=== PATIENT | male | born 1960 | race Caucasian/White ===

== ENCOUNTER 2017-07-22 12:59 | Emergency (ER) | payer OTHER ==
[2017-07-22] MEDS ORDERED: NA CHLORIDE 0.9% 1,000 ML ONE (14:39)
--- NOTE | 2017-07-22 14:42 | EKG ---
Test Date: 2017-07-22 Test Time: 14:24:20 Wellness Manager: BROOKLYNN MEASUREMENT RESULTS: Intervals: Rate: 57 UT: 174 QRSD: 82 QT: 462 QTc: 449 [place]: P: 77 UT: 174 QRS: 88 T: 75 INTERPRETIVE STATEMENTS: Sinus bradycardia Otherwise normal ECG No previous ECG available for comparison Electronically Signed On 07-22-17 14:41:56 CDT by Gustavo Raya
--- NOTE | 2017-07-22 14:59 | RAD REPORT ---
EXAM DESCRIPTION: CT - Head C Spine Mpr Wo Con - 07/22/2017 2:40 pm CLINICAL HISTORY: Head and neck injury status post fall. Head and neck pain COMPARISON: None. TECHNIQUE: Computed axial tomography of the head and cervical spine was obtained. Sagittal and coronal reconstruction was performed. All CT scans are performed using dose optimization technique as appropriate and may include automated exposure control or mA/KV adjustment according to patient size. FINDINGS: An intracranial bleed is not seen. The ventricles are normal in caliber. An extra-axial fl uid collection is not noted. Opacification of the visualized left maxillary sinus is noted. The masto ids are clear A cervical fracture is not visualized. No dislocation is noted. IMPRESSION: No acute intracranial abnormality is seen. A cervical fracture is not visualized. If the patient continues to have symptoms to suggest intracra nial /spinal cord pathology then MRI would be recommended
[2017-07-22 15:16] LABS: Absolute Lymphocytes (CBC) 1.5 K/uL (0.7-4.9); Absolute Monocytes 0.4 K/uL (0.1-1.3); Absolute Neutrophil 2.9 K/uL (1.8-8.0); Basophils % 0.8 % (0-1.3); Eosinophils % 2.9 % (0-4.4); Hematocrit 38.8 % (39.6-49.0); Lymphocytes % 30.7 % (15.3-44.8); MCH 30.5 pg (27.0-35.0); MCV 89.6 fL (80-100); MPV 9.1 fL (7.6-11.3); Monocytes % 7.1 % (3.3-12.3); RBC Red Blood Cell Count 4.34 M/uL (4.33-5.43)
[2017-07-22 15:21] LABS: Protime INR 0.98
[2017-07-22 15:33] LABS: Urine Blood NEGATIVE (NEG); Urine Glucose NEGATIVE (NEG); Urine Protein NEGATIVE (NEG); Urine Specific Gravity 1.015 (1.005-1.030); Urine pH 7.5 (5.0-7.0)
[2017-07-22 15:56] LABS: Potassium 3.4 mEq/L (3.6-5.0)
[2017-07-22 16:02] LABS: Albumin 3.9 g/dL (3.2-5.5); Bilirubin Direct 0.2 mg/dL (0-0.2); Bilirubin Total 0.8 mg/dL (0.3-1.2); Magnesium 1.7 mg/dL (1.8-2.5); Protein, Total 6.3 g/dL (6.0-8.3)
[2017-07-22 16:08] LABS: Arterial Blood Carboxyhemoglob 0.9 % (0-1.5); Blood Gas Oxyhemoglobin 95.4 % (94-97); Blood O2 Saturation 97.2 % (92-98.5)
[2017-07-22] MEDS ORDERED: MAGNESIUM SULFATE 1 gm IVPB 1 GM/100 ML BAG IV ONE (16:11)
[2017-07-22] MEDS ORDERED: POTASSIUM CL SA 10 MEQ TAB PO ONE (16:11)
--- NOTE | 2017-07-22 16:36 | RAD REPORT ---
EXAM DESCRIPTION: CT - Chest For Pe Angio - 07/22/2017 4:20 pm CLINICAL HISTORY: Chest pain. COMPARISON: None. TECHNIQUE: CT angiogram of the pulmonary arteries was performed with MIP. All CT scans are performed using dose optimization technique as appropriate and may include automated exposure control or mA/KV adjustment according to patient size. FINDINGS: No evidence of pulmonary thromboembolism. No acute aortic finding demonstrated. The lungs are mildly emphysematous but clear. No significant pericardial or pleural fluid. No concerning bony finding. IMPRESSION: No evidence of pulmonary thromboembolism. Mild COPD.
--- NOTE | 2017-07-22 16:51 | ER ---
Nurse's Notes [facility] Name: Issac Cox Age: 57 yrs Sex: Male : 1960 Arrival Date: 07/22/2017 Time: 13:13 Bed 16 Private MD: Diagnosis: Dyspnea;Weakness;Hypokalemia;Hypomagnesemia Presentation: 07/22 13:14 Presenting complaint: EMS states: Was working in trailer, became SOB suddenly and then ph woke up face first on floor, continues to c/o SOB, VSS en route w/ Spo2 100% on RA, however mucus membranes appear very dry, IV established and approx 800 mL NS administered. Transition of care: patient was not received from another setting of care. Onset of symptoms was July 22, 2017. Initial Sepsis Screen: Does the patient meet any 2 criteria? No. Patient's initial sepsis screen is negative. Does the patient have a suspected source of infection? No. Patient's initial sepsis screen is negative. Care prior to arrival: None. 13:14 Method Of Arrival: EMS: [facility] ph 13:14 Acuity: ANG 3 ph Historical: - Allergies: 13:18 No Known Allergies; ph - Home Meds: 13:18 None [Active]; ph - PMHx: 13:18 None; ph - Immunization history:: Adult Immunizations unknown. - Family history:: not pertinent. - Social history:: Smoking status: Patient/guardian denies using tobacco. Screenin:26 Abuse screen: Denies threats or abuse. Denies injuries from another. Nutritional ph screening: No deficits noted. Tuberculosis screening: No symptoms or risk factors identified. Fall Risk Fall in past 12 months (25 points). No secondary diagnosis (0 pts). IV access (20 points). Ambulatory Aid- None/Bed Rest/Nurse Assist (0 pts). Gait- Weak (10 pts.). Mental Status- Oriented to own ability (0 pts). Total Lujan Fall Scale indicates High Risk Score (45 or more points). Fall prevention measures have been instituted. Side Rails Up X 2 Placed Close to Nursing Station Family Present and informed to notify staff if the need to leave the bedside As available patient and family educated on Fall Prevention Program and Strategies. Assessment: 13:30 General: Appears in no apparent distress. uncomfortable, slender, Behavior is ph cooperative, anxious, Denies fever, feeling ill. Pain: Complains of pain in right leg and left leg Quality of pain is described as crampy. Neuro: Level of Consciousness is awake, alert, obeys commands, Oriented to person, place, time, situation, tremor noted to R arm, pt denies hx. Reports dizziness, photophobia a syncopal episode. Cardiovascular: Reports lightheadedness, shortness of breath, syncope, Denies chest pain, nausea, vomiting, Capillary refill < 3 seconds in bilateral fingers Patient's skin is warm and dry. Rhythm is regular. Respiratory: Reports shortness of breath at rest Airway is patent Respiratory effort is even, unlabored, Respiratory pattern is tachypnea Breath sounds are clear bilaterally. GI: Reports nausea, vomiting, 1 episode this morning, denies nausea at this time. Derm: Skin is intact, Skin is pink, warm \T\ dry. Musculoskeletal: Circulation, motion, and sensation intact. Range of motion: intact in all extremities. 14:30 Reassessment: Patient appears in no apparent distress at this time. Patient and/or ph family updated on plan of care and expected duration. Pain level reassessed. Patient is alert, oriented x 3, equal unlabored respirations, skin warm/dry/pink. 15:30 Reassessment: Patient appears in no apparent distress at this time. Patient and/or ph family updated on plan of care and expected duration. Pain level reassessed. Patient is alert, oriented x 3, equal unlabored respirations, skin warm/dry/pink. Pt resting quietly, reports that SOB and leg cramps have improved, awaiting CT scan, family at bedside, VSS. 16:30 Reassessment: Patient appears in no apparent distress at this time. Patient and/or ph family updated on plan of care and expected duration. Pain level reassessed. Patient is alert, oriented x 3, equal unlabored respirations, skin warm/dry/pink. Patient states feeling better. Patient states symptoms have improved. 17:33 Reassessment: Patient appears in no apparent distress at this time. Patient and/or ph family updated on plan of care and expected duration. Pain level reassessed. Patient is alert, oriented x 3, equal unlabored respirations, skin warm/dry/pink. Pt resting quietly, awaiting results of repeat cardiac prior to discharge. 18:55 Reassessment: Patient appears in no apparent distress at this time. Patient and/or ph family updated on plan of care and expected duration. Pain level reassessed. Patient is alert, oriented x 3, equal unlabored respirations, skin warm/dry/pink. Pt discharged home. Vital Signs: 13:13 Temp 97.8; tw2 13:17 BP 105 / 68; Pulse 84; Resp 20; Temp 97.8; Pulse Ox 100% on R/A; Weight 74.84 kg; ph Height 5 ft. 10 in. (177.80 cm); 14:30 BP 103 / 68; Pulse 64; Resp 18; Pulse Ox 99% on R/A; ph 15:28 Pulse 63; Resp 18; Pulse Ox 100% on R/A; Pain 0/10; ph 16:30 BP 118 / 68; Pulse 67; Resp 18; Pulse Ox 100% on R/A; ph 17:37 BP 116 / 76; Pulse 76; Resp 18; Temp 97.4; Pulse Ox 100% on R/A; ph 18:30 BP 115 / 78; Pulse 71; Resp 18; Temp 97.8; Pulse Ox 100% on R/A; ph 13:17 Body Mass Index 23.67 (74.84 kg, 177.80 cm) ph ED Course: 13:13 Patient arrived in ED. tw2 13:13 Estrella Olson, RN is Primary Nurse. ph 13:17 Triage completed. ph 13:19 Arm band placed on. ph 14:11 Kelvin Ricketts MD is Attending Physician. hamida 14:22 X-ray completed. Portable x-ray completed in exam room. Patient tolerated procedure jb2 well. 14:30 XRAY Chest (1 view) In Process Unspecified. EDMS 14:39 CT completed. Patient tolerated procedure well. Patient moved to CT via stretcher. nj Patient moved back from CT. 14:40 CT Head C Spine In Process Unspecified. EDMS 15:00 Maintain EMS IV. Dressing intact. Good blood return noted. Site clean \T\ dry. Gauge \T\ ph site: 20 LAC. 15:27 Patient has correct armband on for positive identification. Bed in low position. Call ph light in reach. Side rails up X 1. Pulse ox on. NIBP on. concert singer on. Warm blanket given. 16:[address] nj 16:20 CT completed. Patient tolerated procedure well. Patient moved back from CT. nj 16:20 CT Chest For PE Angio In Process Unspecified. EDMS 17:37 No provider procedures requiring assistance completed. ph 18:55 IV discontinued, intact, bleeding controlled, No redness/swelling at site. Pressure ph dressing applied. Administered Medications: 15:00 Drug: NS 0.9% 1000 ml Route: IV; Rate: 1 bolus; Site: left antecubital; ph 16:00 Follow up: Response: No adverse reaction; IV Status: Completed infusion ph 17:00 Drug: Potassium Chloride 20 mEq Route: PO; ph 18:00 Follow up: Response: No adverse reaction ph 17:15 Drug: Magnesium Sulfate 1 grams Route: IVPB; Infused Over: 1 hrs; Site: left ph antecubital; 18:30 Follow up: Response: No adverse reaction; IV Status: Completed infusion ph Outcome: 16:50 Discharge ordered by . hamida 19:18 Patient left the ED. ph 19:18 Discharged to home ambulatory, with significant other. ph 19:18 Condition: good 19:18 Discharge instructions given to patient, Instructed on discharge instructions, follow up and referral plans. Demonstrated understanding of instructions, follow-up care. Signatures: Dispatcher [employer] EDMS Kelvin Ricketts MD MD cha Buechter, Jesse jb2 Estrella Olson, RN RN Rut Lugo RN RN 2 Dudley Frazier Corrections: (The following items were deleted from the chart) 19:32 13:30 General: Appears in no apparent distress. uncomfortable, slender, Behavior is ph cooperative, agitated, Denies fever, feeling ill, ph
--- NOTE | 2017-07-22 16:51 | EDPHYS ---
Physician Documentation [facility] Name: Issac Cox Age: 57 yrs Sex: Male : 1960 Arrival Date: 07/22/2017 Time: 13:13 Bed 16 Private MD: ED Physician Kelvin Ricketts HPI: 07/22 14:21 This 57 yrs old Male presents to ER via EMS with complaints of sob ,weakness hamida and sob. 14:21 The patient has experienced near-syncope, almost passed out, felt dizzy. Onset: The hamida symptoms/episode began/occurred just prior to arrival. Duration: This was a single episode, that lasted 30 second(s). Context: the episode(s) was witnessed, by co-worker(s). Associated injury: Head/face:. Associated signs and symptoms: Pertinent positives: dizziness, shortness of breath. Current symptoms: Currently, the patient is not experiencing any symptoms. The patient has not experienced similar symptoms in the past. Historical: - Allergies: 13:18 No Known Allergies; ph - Home Meds: 13:18 None [Active]; ph - PMHx: 13:18 None; ph - Immunization history:: Adult Immunizations unknown. - Family history:: not pertinent. - Social history:: Smoking status: Patient/guardian denies using tobacco. ROS: 14:21 Constitutional: Negative for fever, chills, and weight loss, Eyes: Negative for injury, hamida pain, redness, and discharge, ENT: Negative for injury, pain, and discharge, Neck: Negative for injury, pain, and swelling, Cardiovascular: Negative for chest pain, palpitations, and edema, Abdomen/GI: Negative for abdominal pain, nausea, vomiting, diarrhea, and constipation, Back: Negative for injury and pain, : Negative for injury, bleeding, discharge, and swelling, MS/Extremity: Negative for injury and deformity, Skin: Negative for injury, rash, and discoloration, Psych: Negative for depression, anxiety, suicide ideation, homicidal ideation, and hallucinations, Allergy/Immunology: Negative for hives, rash, and allergies, Endocrine: Negative for neck swelling, polydipsia, polyuria, polyphagia, and marked weight changes, Hematologic/Lymphatic: Negative for swollen nodes, abnormal bleeding, and unusual bruising. 14:21 Cardiovascular: Negative for chest pain. 14:21 Respiratory: Positive for cough, shortness of breath. 14:21 Abdomen/GI: Negative for abdominal pain, nausea and vomiting. 14:21 MS/extremity: Negative for acute changes. Exam: 14:21 Constitutional: This is a well developed, well nourished patient who is awake, alert, hamida and in no acute distress. Head/Face: Normocephalic, atraumatic. Eyes: Pupils equal round and reactive to light, extra-ocular motions intact. Lids and lashes normal. Conjunctiva and sclera are non-icteric and not injected. Cornea within normal limits. Periorbital areas with no swelling, redness, or edema. ENT: Nares patent. No nasal discharge, no septal abnormalities noted. Tympanic membranes are normal and external auditory canals are clear. Oropharynx with no redness, swelling, or masses, exudates, or evidence of obstruction, uvula midline. Mucous membranes moist. Neck: Trachea midline, no thyromegaly or masses palpated, and no cervical lymphadenopathy. Supple, full range of motion without nuchal rigidity, or vertebral point tenderness. No Meningismus. Chest/axilla: Normal chest wall appearance and motion. Nontender with no deformity. No lesions are appreciated. Cardiovascular: Regular rate and rhythm with a normal S1 and S2. No gallops, murmurs, or rubs. Normal PMI, no JVD. No pulse deficits. Respiratory: Lungs have equal breath sounds bilaterally, clear to auscultation and percussion. No rales, rhonchi or wheezes noted. No increased work of breathing, no retractions or nasal flaring. Abdomen/GI: Soft, non-tender, with normal bowel sounds. No distension or tympany. No guarding or rebound. No evidence of tenderness throughout. Back: No spinal tenderness. No costovertebral tenderness. Full range of motion. Male : Normal genitalia with no discharge or lesions. Skin: Warm, dry with normal turgor. Normal color with no rashes, no lesions, and no evidence of cellulitis. MS/ Extremity: Pulses equal, no cyanosis. Neurovascular intact. Full, normal range of motion. Neuro: Awake and alert, GCS 15, oriented to person, place, time, and situation. Cranial nerves II-XII grossly intact. Motor strength 5/5 in all extremities. Sensory grossly intact. Cerebellar exam normal. Normal gait. Psych: Awake, alert, with orientation to person, place and time. Behavior, mood, and affect are within normal limits. 15:37 Musculoskeletal/extremity: DVT Exam: No signs of deep vein thrombosis. no pain, no hamida swelling, no tenderness, negative Homans' sign noted on exam, no appreciated bluish discoloration, no erythema, no increased warmth. Vital Signs: 13:13 Temp 97.8; tw2 13:17 BP 105 / 68; Pulse 84; Resp 20; Temp 97.8; Pulse Ox 100% on R/A; Weight 74.84 kg; ph Height 5 ft. 10 in. (177.80 cm); 14:30 BP 103 / 68; Pulse 64; Resp 18; Pulse Ox 99% on R/A; ph 15:28 Pulse 63; Resp 18; Pulse Ox 100% on R/A; Pain 0/10; ph 16:30 BP 118 / 68; Pulse 67; Resp 18; Pulse Ox 100% on R/A; ph 17:37 BP 116 / 76; Pulse 76; Resp 18; Temp 97.4; Pulse Ox 100% on R/A; ph 18:30 BP 115 / 78; Pulse 71; Resp 18; Temp 97.8; Pulse Ox 100% on R/A; ph 13:17 Body Mass Index 23.67 (74.84 kg, 177.80 cm) ph MDM: 14:11 Patient medically screened. [facility] 14:23 Data reviewed: vital signs, nurses notes, lab test result(s), EKG, radiologic studies, [facility] CT scan, plain films. 07/22 14:08 Order name: Basic Metabolic Panel; Complete Time: 16:06 07/22 14:08 Order name: BNP; Complete Time: 15:44 07/22 14:08 Order name: CBC with Diff; Complete Time: 15:22 07/22 14:08 Order name: Ckmb; Complete Time: 16:06 07/22 14:08 Order name: CPK; Complete Time: 16:06 07/22 14:08 Order name: LFT's; Complete Time: 16:06 07/22 14:08 Order name: Magnesium; Complete Time: 16:06 07/22 14:08 Order name: PT-INR; Complete Time: 15:22 07/22 14:08 Order name: Ptt, Activated; Complete Time: 15:22 ph 07/22 14:08 Order name: Troponin (emerg Dept Use Only); Complete Time: 15:37 ph 07/22 14:23 Order name: ABG; Complete Time: 16:33 [facility] 07/22 15:13 Order name: D-Dimer; Complete Time: 15:22 EDMS 07/22 15:28 Order name: Urine Dipstick--Ancillary (enter results); Complete Time: 15:37 07/22 14:08 Order name: XRAY Chest (1 view) 07/22 14:08 Order name: EKG; Complete Time: 14:09 ph 07/22 14:08 Order name: Cardiac monitoring; Complete Time: 14:33 ph 07/22 14:08 Order name: EKG - Nurse/Tech; Complete Time: 16:00 07/22 14:08 Order name: IV Saline Lock; Complete Time: 14:33 ph 07/22 14:08 Order name: Labs collected and sent; Complete Time: 16:00 07/22 14:08 Order name: O2 Per Protocol; Complete Time: 14:33 07/22 14:08 Order name: O2 Sat Monitoring; Complete Time: 14:33 ph 07/22 14:21 Order name: CT Head C Spine; Complete Time: 15:13 [facility] 07/22 15:47 Order name: CT Chest For PE Angio; Complete Time: 16:50 [facility] 07/22 16:09 Order name: Ckmb [facility] 07/22 16:09 Order name: Creatine Phosphokinase 07/22 16:09 Order name: Troponin (emerg Dept Use Only) [facility] 07/22 14:08 Order name: Urine Dipstick-Ancillary (obtain specimen); Complete Time: 14:33 07/22 14:21 Order name: Seizure Precautions; Complete Time: 14:33 [facility] 07/22 16:09 Order name: Repeat Cardiac Enzymes at: 400pm; Complete Time: 17:01 [facility] Administered Medications: 15:00 Drug: NS 0.9% 1000 ml Route: IV; Rate: 1 bolus; Site: left antecubital; ph 16:00 Follow up: Response: No adverse reaction; IV Status: Completed infusion ph 17:00 Drug: Potassium Chloride 20 mEq Route: PO; ph 18:00 Follow up: Response: No adverse reaction ph 17:15 Drug: Magnesium Sulfate 1 grams Route: IVPB; Infused Over: 1 hrs; Site: left ph antecubital; 18:30 Follow up: Response: No adverse reaction; IV Status: Completed infusion ph Disposition: 07/22/17 16:50 Discharged to Home. Impression: Dyspnea, Weakness, Hypokalemia, Hypomagnesemia. - Condition is Stable. - Discharge Instructions: Potassium Content of Foods, Hypomagnesemia, Near-Syncope, Shortness of Breath, Weakness, Shortness of Breath, [id number], Weakness, [id number], Aspirin and Your Heart, Hypokalemia. - Medication Reconciliation Form, Thank You Letter, Antibiotic Education, Prescription Opioid Use, Work release form form. - Follow up: Private Physician; When: 2 - 3 days; Reason: Recheck today's complaints, Continuance of care, Re-evaluation by your physician. - Problem is new. - Symptoms have improved. Signatures: Dispatcher [employer] [facility] Kelvin Ricketts MD MD cha Hall, Patricia RN RN ph Corrections: (The following items were deleted from the chart) 15:13 14:21 D-DIMER+[id number].BRZ ordered. [facility] EDCO 19:18 16:50 07/22/2017 16:50 Discharged to Home. Impression: Dyspnea; Weakness; Hypokalemia; ph Hypomagnesemia. Condition is Stable. Discharge Instructions: Near-Syncope, Shortness of Breath, Weakness, Shortness of Breath, [id number], Weakness, [id number]-tm-[id number], Aspirin and Your Heart, Potassium Content of Foods, Hypomagnesemia, Hypokalemia. Forms are Medication Reconciliation Form, Thank You Letter, Antibiotic Education, Prescription Opioid Use. Follow up: Private Physician; When: 2 - 3 days; Reason: Recheck today's complaints, Continuance of care, Re-evaluation by your physician. Problem is new. Symptoms have improved. hamida
[2017-07-22 18:07] LABS: CKMB Creatine Kinase MB 2.8 ng/ml (0.3-4.0)
--- NOTE | 2017-07-22 18:23 | RAD REPORT ---
EXAM DESCRIPTION: RAD - Chest Single View - 07/22/2017 2:32 pm CLINICAL HISTORY: Syncope, shortness of breath COMPARISON: None. TECHNIQUE: AP portable chest image was obtained 1428 hours . FINDINGS: Lungs are clear. Heart and vasculature are normal. No measurable pleural effusion and no p neumothorax. No gross bony abnormality seen. No acute aortic findings suspected. IMPRESSION: No acute cardiopulmonary process.
== END 2017-07-22 19:18 | disposition home or self-care (01) ==
LOC: ER 12:59
DX: R53.1 Weakness (principal); E87.6 Hypokalemia; E83.42 Hypomagnesemia
CPT/HCPCS: 36415; 70450; 71045; 71275; 72125; 80048; 80076; 81003; 82550; 82553; 82805; 83735; 83880; 84484; 85025; 85379; 85610; 85730; 93005; 96361; 96365; 99285; J3475; J7030; Q9967

== ENCOUNTER 2017-08-15 09:31 | Observation (INO) | payer OTHER ==
[2017-08-15] MEDS ORDERED: BUPIVACAINE 0.5% PF 10 ML VIAL ONE (09:38)
[2017-08-15] MEDS ORDERED: CEFAZOLIN/SWI 1gm 1 GM/10 ML SYR ONE (09:38)
[2017-08-15] MEDS ORDERED: LIDOCAINE 1% MPF 5 ML VIAL ONE (09:38)
[2017-08-15] MEDS ORDERED: TETANUS & DIPHTHERIA TOX,ADULT 0.5 ML VIAL ONE (09:38)
--- NOTE | 2017-08-15 10:22 | ER ---
Nurse's Notes [facility] Name: Issac Cox Age: 57 yrs Sex: Male : 1960 Arrival Date: 08/15/2017 Time: 09:33 Bed 19 Private MD: Diagnosis: Crushing injury of right index finger Presentation: 08/15 09:38 Presenting complaint: Patient states: crushed R index finger between ball hitch and ss trailer approx 30 minutes ago. Bleeding controlled. Transition of care: patient was not received from another setting of care. Onset of symptoms was August 15, 2017. Risk Assessment: Do you want to hurt yourself or someone else? Patient reports no desire to harm self or others. Initial Sepsis Screen: Does the patient meet any 2 criteria? No. Patient's initial sepsis screen is negative. Does the patient have a suspected source of infection? No. Patient's initial sepsis screen is negative. Care prior to arrival: None. 09:38 Method Of Arrival: Ambulatory ss 09:38 Acuity: ANG 2 ss Historical: - Allergies: 09:41 No Known Allergies; ss - Home Meds: 09:41 None [Active]; ss - PMHx: 09:41 None; ss - PSHx: 09:41 R shoulder repair; ss - Immunization history:: Adult Immunizations unknown, Last tetanus immunization: unknown. - Social history:: Smoking status: Patient uses tobacco products, denies chronic smoking, but will smoke occasionally. - Ebola Screening: : Patient denies exposure to infectious person Patient denies travel to an Ebola-affected area in the 21 days before illness onset. Screenin:05 Abuse screen: Denies threats or abuse. Denies injuries from another. Nutritional aj screening: No deficits noted. Tuberculosis screening: No symptoms or risk factors identified. Fall Risk None identified. Assessment: 10:05 General: Appears in no apparent distress. comfortable, Behavior is calm, cooperative, aj appropriate for age. Pain: Complains of pain in palmar aspect of middle phalanx of right index finger. Neuro: Level of Consciousness is awake, alert, obeys commands, Oriented to person, place, time, situation, Appropriate for age. Respiratory: Airway is patent Respiratory effort is even, unlabored, Respiratory pattern is regular, symmetrical. Derm: Skin is intact, is healthy with good turgor, Skin is pink, warm \T\ dry. normal. Musculoskeletal: Swelling present in dorsal aspect of middle phalanx of right index finger. Injury Description: Crush injury sustained to dorsal aspect of middle phalanx of right index finger. 12:40 Reassessment: Patient appears in no apparent distress at this time. No changes from aj previously documented assessment. Patient and/or family updated on plan of care and expected duration. Pain level reassessed. Patient is alert, oriented x 3, equal unlabored respirations, skin warm/dry/pink. Patient denies pain at this time. Patient states feeling better. Vital Signs: 09:41 BP 123 / 76; Pulse 73; Resp 16; Temp 98.1(TE); Pulse Ox 97% on R/A; Weight 74.84 kg; ss Height 5 ft. 11 in. (180.34 cm); Pain 10/10; 12:07 BP 124 / 76; Pulse 61; Resp 18; Pulse Ox 100% on R/A; aj 09:41 Body Mass Index 23.01 (74.84 kg, 180.34 cm) ED Course: 09:33 Patient arrived in ED. 09:40 Triage completed. ss 09:41 Arm band placed on right wrist. ss 09:46 Patricia Clemons FNP-C [facility]. snw 09:46 Collin Monroe MD is Attending Physician. snw 09:52 Inserted saline lock: 18 gauge in left forearm, using aseptic technique. Wound care: to crush located on right hand and palmar aspect of middle phalanx of right index finger was cleaned with Hibiclens, Patient tolerated well. cleaned by Patricia Reinoso nerve block performed, pt tolerated well. 10:01 Edyta Parry, RN is Primary Nurse. aj 10:05 Patient has correct armband on for positive identification. aj 10:10 X-ray completed. Portable x-ray completed in exam room. Patient tolerated procedure ml well. 10:11 Hand Right 3 View XRAY In Process Unspecified. EDMS 10:19 Martha Vera MD is Hospitalizing Provider. snw 12:07 Assist provider with laceration repair on dorsal aspect of middle phalanx of right aj index finger. Patient admitted, IV remains in place. 12:30 Report given to Milena. aj Administered Medications: 09:38 Drug: Hibiclens 4 % 1 application Route: Topical; Site: affected area; ch 10:33 Follow up: Response: No adverse reaction ch 09:40 Drug: Marcaine (0.25 %) 1 amp {Note: administered by Patricia T..} Route: Infiltration; ch 10:33 Follow up: Response: No adverse reaction ch 09:40 Drug: Lidocaine (1 %) 5 mg Route: Infiltration; ch 10:33 Follow up: Response: No adverse reaction ch 09:55 Drug: Ancef 1 grams Route: IVPB; Site: left forearm; ch 10:00 Follow up: IV Status: Completed infusion; IV Intake: 10ml ch 09:56 Drug: Tetanus-Diphtheria Toxoid Adult 0.5 ml {Medical Records Receptionist: [employer]. Exp: 11/08/2019. Lot #: [id number]. } Route: IM; Site: left deltoid; 10:34 Follow up: Response: No adverse reaction ch Intake: 10:00 IV: 10ml; Total: 10ml. Outcome: 10:21 Decision to Hospitalize by Provider. snw 12:40 Admitted to Med/surg accompanied by tech, family with patient, via wheelchair, with aj chart, Report called to Milena 12:40 Condition: good 12:40 Discharge instructions given to patient, Instructed on the need for admit. 12:41 Patient left the ED. aj Signatures: Dispatcher [employer] Nadia Humphreys, RN Edyta Khanna ch, RN RN aj Therrien, Shelly, BOILERMAKING SUPERVISOR-C BOILERMAKING SUPERVISOR-Alisson Valdovinos Shelby, RN RN
--- NOTE | 2017-08-15 10:22 | EDPHYS ---
Physician Documentation [facility] Name: Issac Cox Age: 57 yrs Sex: Male : 1960 Arrival Date: 08/15/2017 Time: 09:33 Bed 19 Private MD: ED Physician Collin Monroe HPI: 08/15 09:51 This 57 yrs old Male presents to ER via Ambulatory with complaints of Finger snw Injury. 09:51 Trauma demographics: County: The injury occurred in [place] Location of Injury: The snw injury occurred at work, Date: August 15, 2017, Time: 09:10. Mechanism of injury: Crush injury: from trailer, resulting in the patient requiring extrication, right index finger crushed between trailer hitch and ball. Associated injuries: The patient sustained contusion, decreased range of motion, laceration, 2.2 cm(s), obvious fracture, painful injury. Onset: The symptoms/episode began/occurred suddenly, and became persistent. The patient has not experienced similar symptoms in the past. It is unknown whether or not the patient has recently seen a physician. Historical: - Allergies: 09:41 No Known Allergies; ss - Home Meds: 09:41 None [Active]; ss - PMHx: 09:41 None; ss - PSHx: 09:41 R shoulder repair; ss - Immunization history:: Adult Immunizations unknown, Last tetanus immunization: unknown. - Social history:: Smoking status: Patient uses tobacco products, denies chronic smoking, but will smoke occasionally. - Ebola Screening: : Patient denies exposure to infectious person Patient denies travel to an Ebola-affected area in the 21 days before illness onset. ROS: 09:50 Constitutional: Negative for fever, chills, and weight loss, Eyes: Negative for injury, snw pain, redness, and discharge, ENT: Negative for injury, pain, and discharge, Neck: Negative for injury, pain, and swelling, Cardiovascular: Negative for chest pain, palpitations, and edema, Respiratory: Negative for shortness of breath, cough, wheezing, and pleuritic chest pain, Abdomen/GI: Negative for abdominal pain, nausea, vomiting, diarrhea, and constipation, Back: Negative for injury and pain, : Negative for injury, bleeding, discharge, and swelling, Skin: Negative for injury, rash, and discoloration, Neuro: Negative for headache, weakness, numbness, tingling, and seizure. 09:50 MS/extremity: Positive for injury or acute deformity, decreased range of motion, pain, of the crush injury of right index finger at mipj, dorsal laceration. Exam: 09:48 Constitutional: This is a well developed, well nourished patient who is awake, alert, snw and in no acute distress. Head/Face: Normocephalic, atraumatic. Eyes: Pupils equal round and reactive to light, extra-ocular motions intact. Lids and lashes normal. Conjunctiva and sclera are non-icteric and not injected. Cornea within normal limits. Periorbital areas with no swelling, redness, or edema. ENT: Nares patent. No nasal discharge, no septal abnormalities noted. Tympanic membranes are normal and external auditory canals are clear. Oropharynx with no redness, swelling, or masses, exudates, or evidence of obstruction, uvula midline. Mucous membranes moist. Neck: Trachea midline, no thyromegaly or masses palpated, and no cervical lymphadenopathy. Supple, full range of motion without nuchal rigidity, or vertebral point tenderness. No Meningismus. Chest/axilla: Normal chest wall appearance and motion. Nontender with no deformity. No lesions are appreciated. Cardiovascular: Regular rate and rhythm with a normal S1 and S2. No gallops, murmurs, or rubs. Normal PMI, no JVD. No pulse deficits. Respiratory: Lungs have equal breath sounds bilaterally, clear to auscultation and percussion. No rales, rhonchi or wheezes noted. No increased work of breathing, no retractions or nasal flaring. Abdomen/GI: Soft, non-tender, with normal bowel sounds. No distension or tympany. No guarding or rebound. No evidence of tenderness throughout. Back: No spinal tenderness. No costovertebral tenderness. Full range of motion. Neuro: Awake and alert, GCS 15, oriented to person, place, time, and situation. Cranial nerves II-XII grossly intact. Motor strength 5/5 in all extremities. Sensory grossly intact. Cerebellar exam normal. Normal gait. Psych: Awake, alert, with orientation to person, place and time. Behavior, mood, and affect are within normal limits. 09:48 Musculoskeletal/extremity: Extremities: grossly normal except: noted in the right index finger at mipj: decreased ROM, laceration. 09:48 Skin: Appearance: normal except for affected area, injury, laceration(s), the wound is approximately 2.2 cm(s), with a depth of 2 cm(s), of the palmar aspect of middle phalanx of right index finger. Vital Signs: 09:41 BP 123 / 76; Pulse 73; Resp 16; Temp 98.1(TE); Pulse Ox 97% on R/A; Weight 74.84 kg; ss Height 5 ft. 11 in. (180.34 cm); Pain 10/10; 12:07 BP 124 / 76; Pulse 61; Resp 18; Pulse Ox 100% on R/A; aj 09:41 Body Mass Index 23.01 (74.84 kg, 180.34 cm) ss MDM: 09:47 Patient medically screened. snw 10:00 Physician consultation: Geoffrey Lafleur MD was called at 10:00, was contacted at 10:00, snw regarding consult, need to evaluate the patient as soon as possible. 10:21 Data reviewed: vital signs, nurses notes. Data interpreted: Pulse oximetry: on room air snw is 97 %. Interpretation: normal. Counseling: I had a detailed discussion with the patient and/or guardian regarding: the historical points, exam findings, and any diagnostic results supporting the discharge/admit diagnosis, radiology results, the need for further work-up and treatment in the hospital. Physician consultation: Martha Vera MD was called at 10:23, was contacted at 10:23, regarding admission, to the medical/surgical unit. 08/15 09:48 Order name: Hand Right 3 View XRAY; Complete Time: 10:24 snw 08/15 09:48 Order name: Wound dressing; Complete Time: 12:39 snw 08/15 10:17 Order name: NPO; Complete Time: 12:09 snw Administered Medications: 09:38 Drug: Hibiclens 4 % 1 application Route: Topical; Site: affected area; ch 10:33 Follow up: Response: No adverse reaction ch 09:40 Drug: Marcaine (0.25 %) 1 amp {Note: administered by Patricia T..} Route: Infiltration; ch 10:33 Follow up: Response: No adverse reaction ch 09:40 Drug: Lidocaine (1 %) 5 mg Route: Infiltration; 10:33 Follow up: Response: No adverse reaction 09:55 Drug: Ancef 1 grams Route: IVPB; Site: left forearm; 10:00 Follow up: IV Status: Completed infusion; IV Intake: 10ml 09:56 Drug: Tetanus-Diphtheria Toxoid Adult 0.5 ml {Clinical Informatics Spec: [employer]. Exp: 11/08/2019. Lot #: [id number]. } Route: IM; Site: left deltoid; 10:34 Follow up: Response: No adverse reaction Disposition: 08/15/17 10:21 Hospitalization ordered by Martha Vera for Observation. Preliminary diagnosis is Crushing injury of right index finger. - Bed requested for Telemetry/MedSurg (observation). - Status is Observation. aj - Condition is Stable. - Problem is new. - Symptoms are unchanged. UTI on Admission? No Addendum: 08/23/2017 10:57 Co-signature as Attending Physician, Collin Monroe MD. g s Signatures: Dispatcher [employer] EDMS Nadia Newberry, RN Asuncion Casas ch RN Edyta Harvey RN RN aj Therrien, Shelly, CHANGE HOUSE ATTENDANT-C CHANGE HOUSE ATTENDANT-Csnw Scarlet Mcintosh RN RN ss Starr, Gregory, MD MD Corrections: (The following items were deleted from the chart) 08/15 11:58 10:21 Hospitalization Ordered by Martha Vera MD for Observation. Preliminary diagnosis dw is Crushing injury of right index finger. Bed requested for Telemetry/MedSurg (observation). Status is Observation. Condition is Stable. Problem is new. Symptoms are unchanged. UTI on Admission? No. snw 12:41 11:58 08/15/2017 10:21 Hospitalization Ordered by Martha Vera MD for Observation. aj Preliminary diagnosis is Crushing injury of right index finger. Bed requested for Telemetry/MedSurg (observation). Status is Observation. Condition is Stable. Problem is new. Symptoms are unchanged. UTI on Admission? No. dw
--- NOTE | 2017-08-15 10:24 | RAD REPORT ---
EXAM DESCRIPTION: RAD - Hand Right 3 View - 08/15/2017 10:11 am CLINICAL HISTORY: Crush injury to second digit. COMPARISON: None. FINDINGS: A transverse fracture is present middle phalanx second digit with mild comminution. Modera te soft tissue swelling is present.
[2017-08-15] MEDS ORDERED: MORPHINE 4 MG/ML SYR IV PRN (10:43)
[2017-08-15] MEDS ORDERED: ACETAMINOPHEN 650MG/RECT SUPP PR PRN (10:43)
[2017-08-15] MEDS ORDERED: ONDANSETRON 4 MG/2 ML VIAL IV PRN (10:43)
[2017-08-15] MEDS ORDERED: VANCOMYCIN 1.25 GM in NA CHLORIDE 0.9% 250 ML IV SCH (11:00)
[2017-08-15] MEDS ORDERED: NA CHLORIDE 0.9% 1,000 ML IV SCH (11:00)
--- NOTE | 2017-08-15 12:43 | HP ---
Date of Admission: 08/15/2017 Primary Care Physician: None Disease Case Manager: Geoffrey Lafleur M.D. History Of Present Illness: The patient is a 57-year-old male with no significant past medical history, who was at work and had trauma to his right hand, which was caught in between a trailer and he had an avulsion injury of his right index finger. The patient reported the pain that was constant, severe , and progressively worsening. Also had some bleeding. Finger is still attached. The patient came into the ER for further evaluation. The patient was given a local block for his pain. His imaging studies showed a transverse fracture in the middle phalanx, second digit with mild communition. Moderate soft tissue swelling is present. On exam, there was some tendon injury as well. Dr. Lafleur was consulted by the ER for urgent evaluation. He recommended surgery. The patient was then referred for admission. When seen in the ER, he was awake, alert, oriented x3, in some mild distress due to pain. Past Medical History: None. Past Surgical History: None. Allergies: NO KNOWN DRUG ALLERGIES. Medications: None. Family History: The patient denies any family history of premature coronary artery disease. Social History: The patient does report smoking occasionally, however, not daily. No alcohol use or illicit drug use. Review of Systems: Ten point systems reviewed, negative except as per HPI. Physical Examination: Vital Signs: Blood pressure 123/76, pulse 73, respirations 16, temperature 98.1 , and pulse ox 97% on room air. General: awake, alert, oriented x3, in some mild distress, appears older than stated age. HEENT: Normocephalic, atraumatic. PERRLA. EOMI. Moist mucous membranes. Oropharynx is clear. Poor dentition. Conjunctivae are anicteric. Neck: Supple. No JVD. Trachea midline. CV: S1, S2. No murmurs. Regular rate and rhythm. Peripheral pulses present. Respiratory: Clear to auscultation bilaterally. No wheezing. No stridor. No use of accessory muscles Gastrointestinal: Abdomen is soft, nontender, nondistended. Positive bowel sounds. No guarding or rigidity. No palpable masses. Extremities: No clubbing, cyanosis, edema. NEURO: cranial nerves 2 through 12 intact grossly. No focal neurological deficit. Speech is normal. Strength is symmetric in bilateral upper and lower extremities. Musculoskeletal: Decreased range of motion. Right index finger skin laceration on the right index finger, 2.2 cm with a depth of 2 cm, palmar aspect of the middle phalanx of the right index finger. Sensation intact. Psych: Mood is okay. Affect is full. Insight and judgment are good. Laboratory Data: Pending. X-ray, transverse fracture is present mid, middle phalanx second digit with mild communition. Moderate soft tissue swelling is present. Assessment: A 57-year-old male with crush injury of the right index finger with transverse fracture. The patient is cleared for surgery. Dr. Lafleur is being consulted. He will need operative repair. Plan: Admit the patient to [facility], place as observation. Anticipate surgery. JONATHAN Voice ID: [id number] MTDD
[2017-08-15] MEDS ORDERED: Morphine 2 MG/2 ML SYR IV PRN (13:19)
[2017-08-15] MEDS ORDERED: Ringers Lactate 1,000 ML IV ONE (13:44)
[2017-08-15] MEDS ORDERED: MORPHINE 4 MG/ML SYR IV ONE (14:00)
[2017-08-15] MEDS ORDERED: PNEUMOCOCCAL VACCINE 0.5 ML IMVAC ONE (14:00)
[2017-08-15] MEDS ORDERED: PROPOFOL 200 MG/20 ML VIAL IV ONE (14:00)
[2017-08-15] MEDS ORDERED: FENTANYL CITR 100 MCG/2 ML ONE (14:01)
[2017-08-15 14:09] LABS: Protime INR 0.97
[2017-08-15] MEDS ORDERED: GLYCOPYRROLATE 0.2 MG/ML SYR ONE (14:35)
[2017-08-15 14:42] LABS: Bilirubin Total 0.8 mg/dL (0.3-1.2); Protein, Total 6.6 g/dL (6.0-8.3)
[2017-08-15] MEDS ORDERED: MEPERIDINE HCL 25 MG/0.5 ML ONE (15:24)
--- NOTE | 2017-08-15 15:40 | RAD REPORT ---
EXAM DESCRIPTION: RAD - Hand Right 2 View - 08/15/2017 3:33 pm CLINICAL HISTORY: Pain, fracture. COMPARISON: None. FINDINGS: Fluoroscopy of the right hand is submitted as part of a pinning procedure of a second digi t fracture. Details of the procedure are not available.
--- NOTE | 2017-08-15 18:27 | DS ---
Date of Discharge: 08/15/2017 Consultants: Geoffrey Lafleur MD Procedures: Right index finger ORIF with pinning. Discharge Diagnoses: Crush injury, right index finger status post open reduction and internal fixati on. Hospital Course: The patient is a 57-year-old male with no significant past medical history, comes i n with trauma to his right hand with an avulsion injury of the right index finger. The patient was s een by Dr. Lafleur, who performed the procedure as stated above. The patient had ORIF and pinning done, tolerated the procedure well, and was cleared for discharge from his standpoint. The patient w as given Ancef and vancomycin prior to surgery, and will be discharged on Bactrim and Tylenol No. 3. The patient to follow up with Dr. Lafleur in 7 to 10 days for wound check. Return to ER for worse elizabeth condition. Follow up with PCP in 2-3 days. Diet: Regular. Activity: Ad zakia. Return to work as per Dr. Lafleur's instructions. Medications: As per medication reconciliation list. For physical exam findings, please see detailed history and physical dictated on the day of discharge . SA/MODL Voice ID: [id number] Report ID: [id number]
--- NOTE | 2017-08-19 09:41 | OP ---
Surgeon: Geoffrey Lalfeur MD Admitting Interviewer: Carlitos. Preoperative Diagnosis: Open fracture of right index finger middle phalanx. Postoperative Diagnosis: Open fracture of right index finger middle phalanx. Procedure Performed: Debridement of skin, subcutaneous tissue, bone; open reduction and internal fixation of fracture of middle phalanx of the index finger with K-wires with arthrodesis of the PIP and DIP joints; extensor tendon repair; simple closure of 4 cm, and splint. Anesthesia: General. Procedure In Detail: After satisfactory induction of general anesthesia, the arm was elevated and exsanguinated with Esmarch. Tourniquet was inflated to 250 mmHg. The wound was jet lavaged and irrigated with 3 L of dilute Betadine solution. Two 0.045 K-wires were driven from proximal to distal out the tip of the index finger, and then with C-arm guidance, we advanced proximally reducing the fracture and impaling the PIP joint. C-arm revealed adequate reduction. The pins were then cut and bent, and then the tendon was repaired. Hand was placed on the [place] table. A 4-0 Prolene was used to repair the tendon. These were sewn with 4-0 PDS horizontal mattress sutures. Tourniquet was released. Electrocautery was used for hemostasis. Skin was debrided as needed. Wound was closed with horizontal mattress of 4-0 Prolene. Dressed with Xeroform, 2-inch Jacob, and splint to hold the PIP and DIP in extension. The patient tolerated the procedure well and returned to Recovery. NARSEH/JONATHAN Voice ID: [id number] Report ID: [id number] KIA
== END 2017-08-15 18:12 | disposition home or self-care (01) ==
LOC: ER 09:31 → ERHOLD 10:21 → 4TH 12:30
PROVIDERS: ADMIT Family Medicine; ATTEND Family Medicine
PROC: 0PH Upper Bones, Insertion (ICD-10-PCS; 2017-08-15)
PROC: 0LQ70ZZ Repair Right Hand Tendon, Open Approach (ICD-10-PCS; 2017-08-15)
PROC: 0PST04Z Reposition Right Finger Phalanx with Internal Fixation Device, Open Approach (ICD-10-PCS; principal; 2017-08-15 14:15)
DX: S62.620B Displaced fracture of middle phalanx of right index finger, initial encounter for open fracture (principal); W23.0XXA Caught, crushed, jammed, or pinched between moving objects, initial encounter; Y93.89 Activity, other specified; Y92.69 Other specified industrial and construction area as the place of occurrence of the external cause; Z23 Encounter for immunization
CPT/HCPCS: 36415; 80053; 85610; 88304; 88311; 90670; 90714; 94760; 96374; 99285; G0009; G0378; J0690; J2175; J2270; J2405; J3010; J7030

== ENCOUNTER 2018-11-04 06:45 | Emergency (ER) | payer OTHER, SELFPAY ==
[2018-11-04] MEDS ORDERED: NA CHLORIDE 0.9% 1,000 ML ONE (07:09)
[2018-11-04 07:21] LABS: Absolute Lymphocytes (CBC) 0.9 K/uL (0.7-4.9); Basophils % 0.9 % (0-1.3); Hematocrit 42.3 % (39.6-49.0); Lymphocytes % 22.5 % (15.3-44.8); RBC Red Blood Cell Count 4.71 M/uL (4.33-5.43)
[2018-11-04 07:23] LABS: Protime INR 0.95
--- NOTE | 2018-11-04 07:42 | RAD REPORT ---
EXAM DESCRIPTION: RAD - Chest Single View - 11/04/2018 7:20 am CLINICAL HISTORY: Weakness, shortness of breath COMPARISON: July 2017 TECHNIQUE: AP portable chest image was obtained 0716 hours . FINDINGS: Lung volumes are low compared to prior imaging. Heart and vasculature are normal. No measu rable pleural effusion and no pneumothorax. No acute bony abnormality seen. No acute aortic findings suspected. IMPRESSION: No acute cardiopulmonary process. No suspicious change comparison.
[2018-11-04 07:44] LABS: ALT/SGPT 37 U/L (12-78); AST/SGOT 18 U/L (15-37); Albumin 3.6 g/dL (3.4-5.0); Alkaline Phosphatase 62 U/L (45-117); BUN Blood Urea Nitrogen 13 mg/dL (7-18); Bicarbonate 30 mmol/L (21-32); Bilirubin Direct 0.2 mg/dL (0-0.2); Bilirubin Total 0.4 mg/dL (0.2-1.0); Glucose Level 92 mg/dL (74-106); Magnesium 2.2 mg/dL (1.8-2.4); NT PRO-BNP 62 pg/mL (<125); Protein, Total 7.2 g/dL (6.4-8.2); Sodium Level 142 mmol/L (136-145); Troponin (Emerg Dept Use Only) < 0.02 ng/mL (0.0-0.045)
[2018-11-04 08:26] LABS: Urine Blood NEGATIVE (NEG); Urine Glucose NEGATIVE (NEG); Urine Protein 1+ (NEG)
[2018-11-04 08:28] LABS: Urine Amorphous Sediment 2+ /HPF (NONE SEEN); Urine Bacteria NONE SEEN /HPF (NONE SEEN); Urine Culture Reflex Order NOT NEEDED; Urine Mucus LIGHT /HPF (NONE SEEN); Urine RBC <5 /HPF (NONE SEEN)
--- NOTE | 2018-11-04 08:45 | RAD REPORT ---
EXAM DESCRIPTION: CT - Chest Abdomen W Con - 11/04/2018 8:20 am CLINICAL HISTORY: generalized weakness, chest pain, abdominal pain COMPARISON: CT chest July 2017 TECHNIQUE: During dynamic enhancement using 100 milliliters nonionic IV contrast, axial 5 millimeter thick images of the chest and abdomen were obtained. Biphasic technique was utilized through the abd omen. No oral contrast administered. All CT scans are performed using dose optimization technique as appropriate and may include automated exposure control or mA/KV adjustment according to patient size. FINDINGS: No focal lung parenchymal process. Mild COPD changes noted. No pneumothorax or pleural eff usion. No chest wall mass or abnormal axillary lymphadenopathy seen. Mediastinal and hilar regions show no mass or lymphadenopathy. No significant cardiac finding. Degenerative changes are present in the thoracic spine. The liver, spleen and pancreas show no significant findings. Gallbladder and biliary tree are normal . Symmetric renal function is seen with no hydronephrosis, mass or other significant finding. No adren al abnormalities. No dilated bowel loops or focal ball bowel wall thickening. Moderate stool volume fills the imaged po rtions of the colon. No free air, free fluid or inflammatory stranding. No hernia, mass or bulky lym phadenopathy. Lumbar spine degenerative changes are present less pronounced than seen in the midthoracic spine. IMPRESSION: CT chest imaging shows no mass, lymphadenopathy or other significant finding. CT abdomen and pelvis imaging shows no significant or suspicious finding.
[2018-11-04 09:01] LABS: Barbiturates NEGATIVE (NEGATIVE); Benzodiazepines NEGATIVE (NEGATIVE); Cocaine POSITIVE (NEGATIVE); METHAMPHETAM POSITIVE (NEGATIVE); Methadone NEGATIVE (NEGATIVE); Opiates NEGATIVE (NEGATIVE); Phencyclidine NEGATIVE (NEGATIVE); THC Cannibis POSITIVE (NEGATIVE)
--- NOTE | 2018-11-04 09:11 | ER ---
Nurse's Notes [facility] Name: Issac Cox Age: 58 yrs Sex: Male : 1960 Arrival Date: 11/04/2018 Time: 06:46 Bed 6 Private MD: Guillermo Dunne E Diagnosis: Polydrug abuse Presentation: 11/04 06:58 Presenting complaint: Patient states: he has been feeling weak for the last 4 or 5 days bb which seems to be getting worse and he feels like "I can't get enough air" he also has lost about 50 pounds in the last 6 months. Transition of care: patient was not received from another setting of care. Onset of symptoms was October 30, 2018. Risk Assessment: Do you want to hurt yourself or someone else? Patient reports no desire to harm self or others. Initial Sepsis Screen: Does the patient meet any 2 criteria? No. Patient's initial sepsis screen is negative. Does the patient have a suspected source of infection? No. Patient's initial sepsis screen is negative. Care prior to arrival: None. 06:58 Method Of Arrival: Ambulatory 06:58 Acuity: ANG 3 bb Triage Assessment: 07:08 Respiratory: Onset: The symptoms/episode began/occurred 4-5 days ago, the patient has aa5 mild shortness of breath. Historical: - Allergies: 07:01 No Known Allergies; bb - Home Meds: 07:01 None [Active]; bb - PMHx: 07:01 None; bb - PSHx: 07:01 rotator cuff; finger surgery; bb - Immunization history:: Adult Immunizations up to date. - Social history:: Smoking status: Patient uses tobacco products, vapes, Patient uses street drugs, marijuana, Patient/guardian denies using alcohol. - Ebola Screening: : No symptoms or risks identified at this time. Screenin:27 Abuse screen: Denies threats or abuse. Nutritional screening: Reports weight loss. aa5 Tuberculosis screening: No symptoms or risk factors identified. Fall Risk None identified. Assessment: 07:08 General: Appears comfortable, Behavior is calm, cooperative. Pain: Denies pain. Neuro: aa5 Level of Consciousness is awake, alert, obeys commands, Oriented to person, place, time, situation, Hand Sample Maker are equal bilaterally Moves all extremities. Speech is normal, Facial symmetry appears normal, Pupils are PERRLA, Reports weakness. Cardiovascular: Heart tones S1 S2 present Capillary refill < 3 seconds is brisk in bilateral fingers Edema is absent. Rhythm is regular. Respiratory: Reports shortness of breath at rest since 4-5 days ago. Pt states "I always have a cough but it seems a little more wet than usual". Pt denies sputum. Airway is patent Respiratory effort is even, unlabored, Respiratory pattern is regular, symmetrical, Breath sounds are diminished bilaterally. GI: Abdomen is flat, non-distended, Bowel sounds present X 4 quads. Abd is soft and non tender X 4 quads. Reports Nausea and vomited blood twice on Saturday. Pt states "I don't think I've noticed any blood in my stool but think I've noticed bright red blood when I wipe" Patient currently denies diarrhea. : No signs and/or symptoms were reported regarding the genitourinary system. EENT: No signs and/or symptoms were reported regarding the EENT system. Derm: Skin is pink, warm \\T\\ dry. Musculoskeletal: Range of motion: intact in all extremities. 08:08 Reassessment: Patient is alert, oriented x 3, equal unlabored respirations, skin aa5 warm/dry/pink. Patient denies pain at this time. Pt to CT via stretcher at this time . 08:25 Reassessment: Pt back from CT . aa5 09:20 Reassessment: Patient is alert, oriented x 3, equal unlabored respirations, skin aa5 warm/dry/pink. Patient denies pain at this time. Vital Signs: 07:01 BP 141 / 91; Pulse 85; Resp 16 S; Temp 97.7(O); Pulse Ox 99% on R/A; Weight 66.68 kg bb (R); Height 5 ft. 11 in. (180.34 cm) (R); Pain 0/10; 07:33 BP 127 / 90; Pulse 79; Resp 18 S; Pulse Ox 100% on R/A; Pain 0/10; aa5 08:40 BP 139 / 88; Pulse 77; Resp 16 S; Temp 97.8(TE); Pulse Ox 100% on R/A; Pain 0/10; aa5 09:20 BP 122 / 88; Pulse 78; Resp 16 S; Pulse Ox 100% on R/A; Pain 0/10; aa5 07:01 Body Mass Index 20.50 (66.68 kg, 180.34 cm) bb ED Course: 06:46 Patient arrived in ED. am2 06:47 Guillermo Dunne MD is Private Physician. am2 06:50 Patricia Clemons [facility]C [facility] snw 06:50 Julissa Zheng MD is Attending Physician. snw 07:00 Triage completed. bb 07:01 Arm band placed on Patient placed in an exam room, on a stretcher, on pulse oximetry. bb 07:05 Patient has correct armband on for positive identification. Placed in gown. Bed in low aa5 position. Call light in reach. Side rails up X2. studio receptionist on. Pulse ox on. NIBP on. 07:10 Initial lab(s) drawn, by me, sent to lab. Inserted saline lock: 20 gauge in right aa5 forearm, using aseptic technique. Blood collected. Pt requested for IV to be d/c'd and placed in left arm instead, IV was dc'd, no swelling or redness noted to site, catheter intact, bleeding controlled. Pt states "It (IV) makes me feel like I can't do anything with my right arm". 07:10 No provider procedures requiring assistance completed. aa5 07:17 XRAY Chest (1 view) In Process Unspecified. EDMS 07:25 Cassia Castro, RN is Primary Nurse. aa5 07:29 Inserted saline lock: 22 gauge in left forearm, using aseptic technique. Blood jl7 collected. 07:29 Second set of blood cultures drawn by me. jl7 07:39 EKG done, by central supply technician supervisor. reviewed by Patricia NÚÑEZ. tc 07:45 Basic Metabolic Panel Sent. jl7 08:08 Urine collected: clean catch specimen, clear, Amount Voided: 120mL Urine micro/culture aa5 and UDS sent to lab. 08:21 CT Chest Abdomen W/ Contrast In Process Unspecified. EDMS 09:08 Guillermo Dunne MD is Referral Physician. snw 09:20 IV discontinued, intact, bleeding controlled, No redness/swelling at site. Pressure aa5 dressing applied. Administered Medications: 07:43 Drug: NS 0.9% 1000 ml Route: IV; Rate: 125 ml/hr; Site: left forearm; jl7 09:20 Follow up: IV Status: Order to discontinue infusion aa5 Outcome: : Discharge ordered by MD. sims 09:20 Discharged to home ambulatory. aa5 09:20 Condition: stable 09:20 Discharge instructions given to patient, Instructed on discharge instructions, follow up and referral plans. Demonstrated understanding of instructions, follow-up care. :27 Patient left the ED. aa5 Signatures: Dispatcher [employer] EDMS Patricia Clemons, BUTTON SPINDLER-C BUTTON SPINDLER-Csnw Shirley Mendez, RN RN bb Cassia Castro RN RN aa5 Sheron Vázquez, life cycle assessment analyst EKG Ttc Patricia Wing RN RN jl7 Edyta Rosenberg am2 Corrections: (The following items were deleted from the chart) 07: 07:27 Nutritional screening: No deficits noted. aa5 aa5
--- NOTE | 2018-11-04 09:12 | EDPHYS ---
Physician Documentation [facility] Name: Issac Cox Age: 58 yrs Sex: Male : 1960 Arrival Date: 11/04/2018 Time: 06:46 Bed 6 Private MD: Guillermo Dunne E ED Physician Julissa Zheng HPI: 11/04 07:00 This 58 yrs old Male presents to ER via Ambulatory with complaints of General snw Weakness, Breathing Difficulty. 07:00 Onset: The symptoms/episode began/occurred suddenly, this morning. Associated signs and snw symptoms: The patient has no apparent associated signs or symptoms. Modifying factors: The patient symptoms are alleviated by nothing. The patient has not experienced similar symptoms in the past. The patient has not recently seen a physician. +vapes, denies ETOH, no home meds, denies allergies. Historical: - Allergies: 07:01 No Known Allergies; bb - Home Meds: 07:01 None [Active]; bb - PMHx: 07:01 None; bb - PSHx: 07:01 rotator cuff; finger surgery; bb - Immunization history:: Adult Immunizations up to date. - Social history:: Smoking status: Patient uses tobacco products, vapes, Patient uses street drugs, marijuana, Patient/guardian denies using alcohol. - Ebola Screening: : No symptoms or risks identified at this time. ROS: 07:00 Constitutional: Negative for fever, chills, and weight loss, Eyes: Negative for injury, snw pain, redness, and discharge, ENT: Negative for injury, pain, and discharge, Neck: Negative for injury, pain, and swelling, Cardiovascular: Negative for chest pain, palpitations, and edema, Abdomen/GI: Negative for abdominal pain, nausea, vomiting, diarrhea, and constipation, Back: Negative for injury and pain, : Negative for injury, bleeding, discharge, and swelling, MS/Extremity: Negative for injury and deformity, Skin: Negative for injury, rash, and discoloration, Neuro: Negative for headache, weakness, numbness, tingling, and seizure, Psych: Negative for depression, anxiety, suicide ideation, homicidal ideation, and hallucinations. 07:00 Respiratory: Positive for shortness of breath. Exam: 06:58 Eyes: Pupils equal round and reactive to light, extra-ocular motions intact. Lids and snw lashes normal. Conjunctiva and sclera are non-icteric and not injected. Cornea within normal limits. Periorbital areas with no swelling, redness, or edema. ENT: Nares patent. No nasal discharge, no septal abnormalities noted. Tympanic membranes are normal and external auditory canals are clear. Oropharynx with no redness, swelling, or masses, exudates, or evidence of obstruction, uvula midline. Mucous membranes moist. Poor dentition Neck: Trachea midline, no thyromegaly or masses palpated, and no cervical lymphadenopathy. Supple, full range of motion without nuchal rigidity, or vertebral point tenderness. No Meningismus. Chest/axilla: Normal chest wall appearance and motion. Nontender with no deformity. No lesions are appreciated. Cardiovascular: Regular rate and rhythm with a normal S1 and S2. No gallops, murmurs, or rubs. Normal PMI, no JVD. No pulse deficits. Respiratory: Lungs have equal breath sounds bilaterally, clear to auscultation and percussion. No rales, rhonchi or wheezes noted. No increased work of breathing, no retractions or nasal flaring. Abdomen/GI: Soft, non-tender, with normal bowel sounds. No distension or tympany. No guarding or rebound. No evidence of tenderness throughout. Back: No spinal tenderness. No costovertebral tenderness. Full range of motion. Skin: Warm, dry with normal turgor. Normal color with no rashes, no lesions, and no evidence of cellulitis. MS/ Extremity: Pulses equal, no cyanosis. Neurovascular intact. Full, normal range of motion. Neuro: Awake and alert, GCS 15, oriented to person, place, time, and situation. Cranial nerves II-XII grossly intact. Motor strength 5/5 in all extremities. Sensory grossly intact. Cerebellar exam normal. Normal gait. 06:58 Constitutional: The patient appears alert, awake, anxious, frail, restless. 06:58 Head/face: Noted is abrasion(s), that are moderate, of the top of head. 06:58 Psych: Behavior/mood is anxious, Affect is animated, Oriented to person, place, time, Patient has no thoughts/intents to harm self or others. 06:58 Special observations: frail, cachectic, pt states + significant wt loss without trying over past 6 months. Vital Signs: 07:01 BP 141 / 91; Pulse 85; Resp 16 S; Temp 97.7(O); Pulse Ox 99% on R/A; Weight 66.68 kg bb (R); Height 5 ft. 11 in. (180.34 cm) (R); Pain 0/10; 07:33 BP 127 / 90; Pulse 79; Resp 18 S; Pulse Ox 100% on R/A; Pain 0/10; aa5 08:40 BP 139 / 88; Pulse 77; Resp 16 S; Temp 97.8(TE); Pulse Ox 100% on R/A; Pain 0/10; aa5 09:20 BP 122 / 88; Pulse 78; Resp 16 S; Pulse Ox 100% on R/A; Pain 0/10; aa5 07:01 Body Mass Index 20.50 (66.68 kg, 180.34 cm) bb MDM: 06:50 Patient medically screened. snw 09:10 Data reviewed: vital signs, nurses notes. Data interpreted: Pulse oximetry: on room air snw is 100 %. Interpretation: normal. Counseling: I had a detailed discussion with the patient and/or guardian regarding: the historical points, exam findings, and any diagnostic results supporting the discharge/admit diagnosis, the presence of at least one elevated blood pressure reading (>120/80) during this emergency department visit, lab results, radiology results, the need for outpatient follow up, to return to the emergency department if symptoms worsen or persist or if there are any questions or concerns that arise at home, smoking cessation. Special discussion: Based on the history and exam findings, there is no indication for further emergent testing or inpatient evaluation. I discussed with the patient/guardian the need to see the primary care provider for further evaluation of the symptoms. I discussed with the patient/guardian the need to see the psychiatrist for further evaluation of the symptoms. 11/04 06:56 Order name: Basic Metabolic Panel snw 11/04 06:56 Order name: CBC with Diff; Complete Time: 07:35 snw 11/04 06:56 Order name: LFT's; Complete Time: 07:46 snw 11/04 06:56 Order name: Magnesium; Complete Time: 07:46 snw 11/04 06:56 Order name: NT PRO-BNP; Complete Time: 07:46 snw 11/04 06:56 Order name: PT-INR; Complete Time: 07:35 snw 11/04 06:56 Order name: Troponin (emerg Dept Use Only); Complete Time: 07:46 snw 11/04 06:56 Order name: TSH; Complete Time: 07:46 snw 11/04 06:56 Order name: Blood Culture Adult (2) snw 11/04 06:56 Order name: UDS; Complete Time: 09:05 snw 11/04 06:56 Order name: Urine Culture snw 11/04 06:56 Order name: Urine Microscopic Only; Complete Time: 08:37 snw 11/04 06:57 Order name: Basic Metabolic Panel; Complete Time: 07:46 EDMS 11/04 07:00 Order name: DD; Complete Time: 08:07 snw 11/04 06:56 Order name: XRAY Chest (1 view); Complete Time: 07:52 snw 11/04 06:56 Order name: EKG; Complete Time: 06:58 snw 11/04 06:56 Order name: Cardiac monitoring; Complete Time: 06:59 snw 11/04 06:56 Order name: EKG - Nurse/Tech; Complete Time: 07:25 snw 11/04 06:56 Order name: IV Saline Lock; Complete Time: 07:45 snw 11/04 06:56 Order name: Labs collected and sent; Complete Time: 07:25 snw 11/04 06:56 Order name: O2 Per Protocol; Complete Time: 06:58 snw 11/04 06:56 Order name: O2 Sat Monitoring; Complete Time: 06:58 snw 11/04 06:56 Order name: Urine Dipstick-Ancillary (obtain specimen); Complete Time: 08:26 snw 11/04 07:48 Order name: CT Chest Abdomen W/ Contrast; Complete Time: 08:58 snw 11/04 08:24 Order name: Urine Dipstick--Ancillary (enter results) bd 11/04 08:26 Order name: Urine Dipstick-Ancillary; Complete Time: 08:37 EDMS Administered Medications: 07:43 Drug: NS 0.9% 1000 ml Route: IV; Rate: 125 ml/hr; Site: left forearm; jl7 09:20 Follow up: IV Status: Order to discontinue infusion aa5 Disposition: 11/05 07:28 Co-signature as Attending Physician, Julissa Zheng MD. ma2 Disposition: 11/04/18 09:09 Discharged to Home. Impression: Polydrug abuse. - Condition is Stable. - Discharge Instructions: Weakness, Malnutrition, Form - Daily Weight Record, What You Need To Know About Illegal Drug Use and Dependence, Youth. - Medication Reconciliation Form, Thank You Letter, Antibiotic Education, Prescription Opioid Use form. - Follow up: Guillermo Dunne MD; When: 2 - 3 days; Reason: Recheck today's complaints, Continuance of care, Re-evaluation by your physician. Signatures: Dispatcher [employer] EDMS Patricia Clemons, SHIRLENE-C TRACTOR TRAILER DRIVER-Csnw Shirley Mendez RN RN Cassia Rock RN RN aa5 Patricia Wing RN RN jl7 Julissa Zheng MD MD ma2 Corrections: (The following items were deleted from the chart) 11/04 09:27 09:09 11/04/2018 09:09 Discharged to Home. Impression: Polydrug abuse. Condition is aa5 Stable. Forms are Medication Reconciliation Form, Thank You Letter, Antibiotic Education, Prescription Opioid Use. Follow up: Guillermo Dunne; When: 2 - 3 days; Reason: Recheck today's complaints, Continuance of care, Re-evaluation by your physician. snw
--- NOTE | 2018-11-04 11:21 | EKG ---
Test Date: 2018-11-04 Test Time: 07:31:19 Roping Machine Tender: GERDA MEASUREMENT RESULTS: Intervals: Rate: 78 HI: 146 QRSD: 86 QT: 386 QTc: 440 [place]: P: 84 HI: 146 QRS: 88 T: 82 INTERPRETIVE STATEMENTS: Normal sinus rhythm Normal ECG Compared to ECG 07/22/2017 14:24:20 Sinus bradycardia no longer present Electronically Signed On 11-04-18 11:19:10 CDT by Rip Crespo
== END 2018-11-04 09:27 | disposition home or self-care (01) ==
LOC: ER 06:45
DX: F19.10 Other psychoactive substance abuse, uncomplicated (principal); Z72.0 Tobacco use
CPT/HCPCS: 36415; 71045; 71260; 74160; 80048; 80076; 80307; 81003; 81015; 83735; 83880; 84443; 84484; 85025; 85379; 85610; 87040; 87086; 87088; 93005; 96360; 96361; 99284; J7030; Q9967

== ENCOUNTER 2019-12-13 12:12 | Emergency (ER) | payer SELFPAY ==
[2019-12-13] MEDS ORDERED: LORazepam 2 MG/ML VIAL ONE (12:32)
[2019-12-13 12:44] LABS: Absolute Lymphocytes (CBC) 1.7 K/uL (0.7-4.9); Hematocrit 45.3 % (39.6-49.0); Lymphocytes % 29.8 % (15.3-44.8); RBC Red Blood Cell Count 5.13 M/uL (4.33-5.43)
[2019-12-13] MEDS ORDERED: NA CHLORIDE 0.9% 1,000 ML ONE (12:53)
[2019-12-13 13:08] LABS: ALT/SGPT 40 U/L (12-78); AST/SGOT 28 U/L (15-37); Albumin 4.1 g/dL (3.4-5.0); Alkaline Phosphatase 78 U/L (45-117); BUN Blood Urea Nitrogen 11 mg/dL (7-18); Bicarbonate 27 mmol/L (21-32); Bilirubin Direct 0.2 mg/dL (0-0.2); Bilirubin Total 0.9 mg/dL (0.2-1.0); Glucose Level 87 mg/dL (74-106); Magnesium 2.2 mg/dL (1.8-2.4); NT PRO-BNP 60 pg/mL (<125); Potassium 4.4 mmol/L (3.5-5.1); Sodium Level 141 mmol/L (136-145); Troponin (Emerg Dept Use Only) < 0.02 ng/mL (0.0-0.045)
--- NOTE | 2019-12-13 13:17 | RAD REPORT ---
EXAM DESCRIPTION: RAD - Chest Single View - 12/13/2019 1:01 pm CLINICAL HISTORY: COUGH Chest pain. COMPARISON: Chest Single View dated 11/04/2018; Chest Single View dated 07/22/2017 FINDINGS: Portable technique limits examination quality. The lungs are grossly clear. The heart is normal in size. No displaced fractures. IMPRESSION: No acute intrathoracic process suspected.
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
--- NOTE | 2019-12-13 13:41 | EDPHYS ---
Physician Documentation [facility] Name: Issac Cox Age: 59 yrs Sex: Male : 1960 Arrival Date: 12/13/2019 Time: 12:16 Bed 5 Private MD: ED Physician Kelvin Ricketts HPI: 12/12 12:21 This 59 yrs old Male presents to ER via Unassigned with complaints of hamida anxiety, meth abuse. 12:21 The patient presents to the emergency department with anxiety. Onset: The hamida symptoms/episode began/occurred 2 day(s) ago. Past psychiatric history: Prior diagnosis: bipolar disorder. anxious. Associated signs and symptoms: Pertinent positives; anxiety. Severity of symptoms: At their worst the symptoms were mild in the emergency department the symptoms are unchanged. The patient has experienced similar episodes in the past, multiple times. Historical: - Allergies: 12:15 No Known Allergies; jl7 - Home Meds: 13:29 Seroquel Oral [Active]; jl7 - PMHx: 13:29 Bipolar disorder; jl7 - PSHx: 12:15 rotator cuff; finger surgery; jl7 - Immunization history:: Adult Immunizations unknown. - Social history:: Smoking status: Reported history of juuling and/or vaping. Patient uses street drugs, Methamphetamine (Meth) IV drugs, amphetamines. - Family history:: not pertinent. ROS: 12:22 Constitutional: Negative for fever, chills, and weight loss, Eyes: Negative for injury, hamida pain, redness, and discharge, ENT: Negative for injury, pain, and discharge, Neck: Negative for injury, pain, and swelling, Cardiovascular: Negative for chest pain, palpitations, and edema, Respiratory: Negative for shortness of breath, cough, wheezing, and pleuritic chest pain, Abdomen/GI: Negative for abdominal pain, nausea, vomiting, diarrhea, and constipation, Back: Negative for injury and pain, : Negative for injury, bleeding, discharge, and swelling, MS/Extremity: Negative for injury and deformity, Skin: Negative for injury, rash, and discoloration, Neuro: Negative for headache, weakness, numbness, tingling, and seizure, Allergy/Immunology: Negative for hives, rash, and allergies, Endocrine: Negative for neck swelling, polydipsia, polyuria, polyphagia, and marked weight changes. 12:22 Psych: Positive for anxiety. Exam: 12:22 Constitutional: This is a well developed, well nourished patient who is awake, alert, hamida and in no acute distress. Head/Face: Normocephalic, atraumatic. Eyes: Pupils equal round and reactive to light, extra-ocular motions intact. Lids and lashes normal. Conjunctiva and sclera are non-icteric and not injected. Cornea within normal limits. Periorbital areas with no swelling, redness, or edema. ENT: Nares patent. No nasal discharge, no septal abnormalities noted. Tympanic membranes are normal and external auditory canals are clear. Oropharynx with no redness, swelling, or masses, exudates, or evidence of obstruction, uvula midline. Mucous membranes moist. Neck: Trachea midline, no thyromegaly or masses palpated, and no cervical lymphadenopathy. Supple, full range of motion without nuchal rigidity, or vertebral point tenderness. No Meningismus. Chest/axilla: Normal chest wall appearance and motion. Nontender with no deformity. No lesions are appreciated. Cardiovascular: Regular rate and rhythm with a normal S1 and S2. No gallops, murmurs, or rubs. Normal PMI, no JVD. No pulse deficits. Respiratory: Lungs have equal breath sounds bilaterally, clear to auscultation and percussion. No rales, rhonchi or wheezes noted. No increased work of breathing, no retractions or nasal flaring. Abdomen/GI: Soft, non-tender, with normal bowel sounds. No distension or tympany. No guarding or rebound. No evidence of tenderness throughout. Back: No spinal tenderness. No costovertebral tenderness. Full range of motion. Male : Normal genitalia with no discharge or lesions. Skin: Warm, dry with normal turgor. Normal color with no rashes, no lesions, and no evidence of cellulitis. MS/ Extremity: Pulses equal, no cyanosis. Neurovascular intact. Full, normal range of motion. Neuro: Awake and alert, GCS 15, oriented to person, place, time, and situation. Cranial nerves II-XII grossly intact. Motor strength 5/5 in all extremities. Sensory grossly intact. Cerebellar exam normal. Normal gait. 12:22 Psych: Behavior/mood is anxious, Affect is animated, Oriented to person, place, time, Patient has no thoughts/intents to harm self or others. Judgement / Insight is normal. 12:42 ECG was reviewed by the Attending Physician. [facility] Vital Signs: 12:15 BP 115 / 76; Pulse 79; Resp 19; Temp 97.9; Pulse Ox 98% ; jl7 13:25 BP 124 / 82; Pulse 81; Resp 17; Pulse Ox 100% ; jl7 MDM: 12:17 Patient medically screened. hamida 12:24 Differential diagnosis: drug withdrawal. acute psychotic break, depression, psychosis hamida secondary to non-compliance. Differential Diagnosis altered mental status. Data reviewed: vital signs, nurses notes, lab test result(s), EKG, radiologic studies, plain films. Data interpreted: care clinician: rate is 80 beats/min, rhythm is regular, Pulse oximetry: on room air is 96 %. Test interpretation: by ED physician or midlevel provider: ECG, plain radiologic studies. Counseling: I had a detailed discussion with the patient and/or guardian regarding: the historical points, exam findings, and any diagnostic results supporting the discharge/admit diagnosis, lab results, radiology results, the need for outpatient follow up, for definitive care. 12/12 12:19 Order name: Basic Metabolic Panel; Complete Time: 13:38 [facility] 12/12 12:19 Order name: CBC with Diff; Complete Time: 13:38 [facility] 12/12 12:19 Order name: LFT's; Complete Time: 13:38 [facility] 12/12 12:19 Order name: Magnesium; Complete Time: 13:38 [facility] 12/12 12:19 Order name: NT PRO-BNP; Complete Time: 13:38 [facility] 12/12 12:19 Order name: Troponin (emerg Dept Use Only); Complete Time: 13:38 [place] 12/12 12:19 Order name: XRAY Chest (1 view); Complete Time: 13:38 [facility] 12/12 12:19 Order name: Acetaminophen; Complete Time: 13:38 [facility] 12/12 12:19 Order name: ETOH Level; Complete Time: 13:38 [facility] 12/12 12:19 Order name: PT-INR; Complete Time: 13:38 [facility] 12/12 12:19 Order name: Ptt, Activated; Complete Time: 13:38 [facility] 12/12 12:19 Order name: Salicylate; Complete Time: 13:38 [facility] 12/12 12:19 Order name: Urine Drug Screen [facility] 12/12 13:18 Order name: Urine Dipstick--Ancillary (enter results) 12/12 12:19 Order name: EKG; Complete Time: 12:19 [facility] 12/12 12:19 Order name: Cardiac monitoring; Complete Time: 12:42 [facility] 12/12 12:19 Order name: EKG - Nurse/Tech; Complete Time: 12:42 [facility] 12/12 12:19 Order name: IV Saline Lock; Complete Time: 12:42 [facility] 12/12 12:19 Order name: Labs collected and sent; Complete Time: 12:42 [facility] 12/12 12:19 Order name: O2 Per Protocol; Complete Time: 12:42 [facility] 12/12 12:19 Order name: O2 Sat Monitoring; Complete Time: 12:42 [facility] 12/12 12:19 Order name: Urine Dipstick-Ancillary (obtain specimen); Complete Time: 13:55 [facility] 12/12 13:39 Order name: Diet Regular; Complete Time: 13:40 [facility] EC:42 Rate is 81 beats/min. Rhythm is regular. QRS [place] is Normal. [place] interval is normal. QRS hamida interval is normal. QT interval is normal. No Q waves. T waves are Normal. No ST changes noted. Clinical impression: NSR w/ Non-specific ST/T Changes and No evidence of ischemia. Interpreted by me. Reviewed by me. Administered Medications: 12:30 Drug: Ativan 1 mg Route: IVP; Site: left forearm; jl7 13:00 Follow up: Response: No adverse reaction; Marked relief of symptoms jl7 12:50 Drug: NS 0.9% 1000 ml Route: IV; Rate: 1 bolus; Site: left forearm; jl7 13:50 Follow up: Response: No adverse reaction; IV Status: Completed infusion; IV Intake: jl7 1000ml Disposition: 12/13/19 13:40 Discharged to Home. Impression: Adverse effect of amphetamines, Bipolar disorder, Anxiety disorder, unspecified. - Condition is Stable. - Discharge Instructions: Stimulant Use Disorder-Amphetamines, Panic Attacks, Bipolar Disorder, Stimulant Use Disorder-Methamphetamines. - Prescriptions for Hydroxyzine HCl 25 mg Oral Tablet - take 1 tablet by ORAL route every 6 hours As needed; 30 tablet. - Medication Reconciliation Form, Thank You Letter, Antibiotic Education, Prescription Opioid Use form. - Follow up: Private Physician; When: 2 - 3 days; Reason: Recheck today's complaints, Continuance of care, Re-evaluation by your physician. Follow up: Brodie Dinero MD; When: 2 - 3 days; Reason: Recheck today's complaints, Re-evaluation by your physician. - Problem is new. - Symptoms have improved. Signatures: Dispatcher [employer] EDCT Kelvin Ricketts MD MD cha Leal, Jahala, RN RN jl7 Corrections: (The following items were deleted from the chart) 13:29 12:15 Home Meds: None; jl7 jl7 13:29 12:15 PMHx: None; jl7 jl7 13:41 13:40 12/13/2019 13:40 Discharged to Home. Impression: Adverse effect of amphetamines; hamida Bipolar disorder. Condition is Stable. Forms are Medication Reconciliation Form, Thank You Letter, Antibiotic Education, Prescription Opioid Use. Follow up: Private Physician; When: 2 - 3 days; Reason: Recheck today's complaints, Continuance of care, Re-evaluation by your physician. Follow up: Brodie Dinero; When: 2 - 3 days; Reason: Recheck today's complaints, Re-evaluation by your physician. Problem is new. Symptoms have improved. hamida 14:15 13:41 12/13/2019 13:40 Discharged to Home. Impression: Adverse effect of amphetamines; jl7 Bipolar disorder; Anxiety disorder, unspecified. Condition is Stable. Discharge Instructions: Stimulant Use Disorder-Amphetamines, Bipolar Disorder, Stimulant Use Disorder-Methamphetamines. Forms are Medication Reconciliation Form, Thank You Letter, Antibiotic Education, Prescription Opioid Use. Follow up: Private Physician; When: 2 - 3 days; Reason: Recheck today's complaints, Continuance of care, Re-evaluation by your physician. Follow up: Brodie Dinero; When: 2 - 3 days; Reason: Recheck today's complaints, Re-evaluation by your physician. Problem is new. Symptoms have improved. hamida
[2019-12-13 13:48] LABS: Urine Blood NEGATIVE (NEG); Urine Glucose NEGATIVE (NEG); Urine Protein NEGATIVE (NEG)
[2019-12-13 13:49] LABS: Barbiturates NEGATIVE (NEGATIVE); Benzodiazepines NEGATIVE (NEGATIVE); Cocaine NEGATIVE (NEGATIVE); METHAMPHETAM POSITIVE (NEGATIVE); Methadone NEGATIVE (NEGATIVE); Opiates NEGATIVE (NEGATIVE); Phencyclidine NEGATIVE (NEGATIVE); THC Cannibis POSITIVE (NEGATIVE)
[2019-12-13 14:22] VITALS: TEMP 97.9
[2019-12-13 14:23] VITALS: BP 124/82; O2SAT 100
== END 2019-12-13 14:15 | disposition home or self-care (01) ==
LOC: ER 12:12
DX: F41.9 Anxiety disorder, unspecified (principal); T43.625A Adverse effect of amphetamines, initial encounter; F31.9 Bipolar disorder, unspecified; Z87.891 Personal history of nicotine dependence
CPT/HCPCS: 36415; 71045; 80048; 80076; 80307; 80320; 80329; 81003; 83735; 83880; 84484; 85025; 85610; 85730; 93005; 96361; 96374; 99285; J7030

== ENCOUNTER 2019-12-15 03:41 | Emergency (ER) | payer SELFPAY ==
[2019-12-15 04:13] LABS: Basophils % 0.5 % (0-1.3); Hematocrit 48.4 % (39.6-49.0); Lymphocytes % 30.9 % (15.3-44.8); MPV 9.4 fL (7.6-11.3); RBC Red Blood Cell Count 5.45 M/uL (4.33-5.43)
[2019-12-15] MEDS ORDERED: LORazepam 2 MG/ML VIAL ONE (04:22)
[2019-12-15 04:33] LABS: ALT/SGPT 41 U/L (12-78); AST/SGOT 36 U/L (15-37); Albumin 3.8 g/dL (3.4-5.0); Alkaline Phosphatase 78 U/L (45-117); BUN Blood Urea Nitrogen 13 mg/dL (7-18); Bicarbonate 22 mmol/L (21-32); Bilirubin Direct 0.2 mg/dL (0-0.2); Bilirubin Total 0.8 mg/dL (0.2-1.0); Creatine Phosphokinase 290 U/L (39-308); Glucose Level 100 mg/dL (74-106); NT PRO-BNP 47 pg/mL (<125); Potassium 3.7 mmol/L (3.5-5.1); Sodium Level 137 mmol/L (136-145); Troponin (Emerg Dept Use Only) < 0.02 ng/mL (0.0-0.045)
[2019-12-15 04:49] LABS: Lipase 189 U/L (73-393)
[2019-12-15 04:56] LABS: Protime INR 1.04
--- NOTE | 2019-12-15 07:03 | ER ---
Nurse's Notes [facility] Name: Issac Cox Age: 59 yrs Sex: Male : 1960 Arrival Date: 12/15/2019 Time: 03:42 Bed 8 Private MD: Diagnosis: Dyspnea;Methamphetamine Abuse Presentation: 12/14 03:43 Chief complaint: EMS states: PT was here 2 days ago. Reports SOB. he was found at his jb4 home on all 4's no s/s of respiratory distress noted. Reports vomiting earlier today, and feeling nauseous. denies drug use last night, reports using meth 2 days ago. 03:43 Coronavirus screen: Client denies travel out of the [place] in the last 14 days. At this jb4 time, the client does not indicate any symptoms associated with coronavirus-19. Ebola Screen: No symptoms or risks identified at this time. Initial Sepsis Screen: Does the patient meet any 2 criteria? HR > 90 bpm. Yes Does the patient have a suspected source of infection? Yes: Acute abdominal pain. Risk Assessment: Do you want to hurt yourself or someone else? Patient reports no desire to harm self or others. Onset of symptoms was December 15, 2019. Transition of care: patient was not received from another setting of care. 03:43 Method Of Arrival: EMS: [place] [id number] 03:43 Acuity: ANG 3 jb4 Historical: - Allergies: 03:51 No Known Allergies; jb4 - Home Meds: 03:51 Seroquel Oral [Active]; jb4 - PMHx: 03:51 Bipolar disorder; jb4 - PSHx: 03:51 rotator cuff; finger surgery; jb4 - Immunization history:: Adult Immunizations up to date. - Social history:: Smoking status: Patient denies any tobacco usage or history of. Patient uses street drugs, marijuana, Methamphetamine (Meth) Patient/guardian denies using alcohol. Screenin:52 Abuse screen: Denies threats or abuse. Nutritional screening: No deficits noted. jb4 Tuberculosis screening: No symptoms or risk factors identified. Fall Risk None identified. Assessment: 03:52 General: Appears in no apparent distress. uncomfortable, Behavior is calm, cooperative, jb4 appropriate for age. Pain: Complains of pain in abdomen Pain does not radiate. Pain currently is 8 out of 10 on a pain scale. Neuro: Level of Consciousness is awake, alert, obeys commands, Oriented to person, place, time, situation. Cardiovascular: Patient's skin is warm and dry. Respiratory: Airway is patent Respiratory effort is even, labored, Respiratory pattern is regular, symmetrical, Breath sounds are clear bilaterally. GI: Abdomen is flat, non-distended, Bowel sounds present X 4 quads. Abd is soft X 4 quads Abd is non tender in left upper quadrant and left lower quadrant Abdomen is tender to palpation in right upper quadrant and right lower quadrant. : No signs and/or symptoms were reported regarding the genitourinary system. EENT: No signs and/or symptoms were reported regarding the EENT system. Derm: Skin is intact, Skin is pink, warm \T\ dry. Musculoskeletal: Circulation, motion, and sensation intact. Range of motion: intact in all extremities. 04:54 Reassessment: Patient appears in no apparent distress at this time. Patient and/or jb4 family updated on plan of care and expected duration. Pain level reassessed. Patient is alert, oriented x 3, equal unlabored respirations, skin warm/dry/pink. 05:58 Reassessment: Patient and/or family updated on plan of care and expected duration. Pain jb4 level reassessed. Pt is resting in bed with eyes closed, respirations are even and unlabored with no s/s of pain or distress noted. 06:58 Reassessment: Patient appears in no apparent distress at this time. No changes from jb4 previously documented assessment. Patient and/or family updated on plan of care and expected duration. Pain level reassessed. 07:35 Reassessment: Patient appears in no apparent distress at this time. Patient and/or em family updated on plan of care and expected duration. Pain level reassessed. Patient is alert, oriented x 3, equal unlabored respirations, skin warm/dry/pink. Patient states feeling better. 07:40 Reassessment: pending bus pass for pt, attempted to contact next of kin but they are em having legal troubles and would like to be removed off his account. Vital Signs: 03:43 BP 123 / 67; Pulse 91; Resp 16; Temp 97.8(TE); Pulse Ox 97% on R/A; Weight 77.11 kg jb4 (R); Height 5 ft. 11 in. (180.34 cm) (R); Pain 8/10; 04:30 BP 116 / 82; Pulse 73; Resp 16; Pulse Ox 98% on R/A; jb4 05:30 BP 142 / 75; Pulse 83; Resp 16; Pulse Ox 97% on R/A; jb4 06:30 BP 114 / 79; Pulse 65; Resp 16; Pulse Ox 97% on R/A; jb4 07:34 BP 116 / 82; Pulse 71; Resp 18; Pulse Ox 98% on R/A; em 03:43 Body Mass Index 23.71 (77.11 kg, 180.34 cm) jb4 ED Course: 03:42 Patient arrived in ED. cl3 03:45 Alessandro Michelle MD is Attending Physician. 7 03:48 Jerman Rivera, RN is Primary Nurse. jb4 03:51 Triage completed. jb4 03:51 Arm band placed on right wrist. jb4 03:52 Patient has correct armband on for positive identification. Bed in low position. Call [facility] light in reach. Side rails up X 1. Pulse ox on. NIBP on. 04:00 EKG done, by ED staff, reviewed by Alessandro Michelle MD. Inserted saline lock: 20 gauge in ds4 right antecubital area, using aseptic technique. Blood collected. 04:14 XRAY Chest (1 view) In Process Unspecified. EDMS 07:34 No provider procedures requiring assistance completed. IV discontinued, intact, em bleeding controlled, No redness/swelling at site. Pressure dressing applied. Administered Medications: 04:17 Drug: Ativan 1 mg Route: IVP; Site: right antecubital; jb4 07:15 Follow up: Response: No adverse reaction em Outcome: 07:03 Discharge ordered by . [email or web address] 07:34 Discharged to home ambulatory. em 07:34 Condition: good 07:34 Discharge instructions given to patient, Instructed on discharge instructions, follow up and referral plans. Demonstrated understanding of instructions, follow-up care. 07:58 Patient left the ED. em Signatures: Dispatcher [employer] EDAK Rodolfo Lee RN RN em Doni Sen ds4 Jerman Rivera RN RN 4 Benjamín Montalvo cl3 Alessandro Michelle MD MD [facility]
--- NOTE | 2019-12-15 07:03 | EDPHYS ---
Physician Documentation [facility] Name: Issac Cox Age: 59 yrs Sex: Male : 1960 Arrival Date: 12/15/2019 Time: 03:42 Bed 8 Private MD: ED Physician Alessandro Michelle HPI: 12/14 04:26 This 59 yrs old Male presents to ER via EMS with complaints of Shortness Of mh7 Breath. 04:26 The patient has shortness of breath at rest. Onset: The symptoms/episode began/occurred mh7 2 day(s) ago. Duration: The symptoms are intermittent, with no pattern. The patient's shortness of breath is aggravated by coughing, is alleviated by nothing. 04:28 Associated signs and symptoms: Pertinent positives: productive cough, nausea, vomiting. mh7 04:29 Associated signs and symptoms: Pertinent positives: Pertinent negatives: chest pain, mh7 diaphoresis, dizziness, fever, hemoptysis, loss of consciousness, numbness in extremities, visual changes. Severity of symptoms: At their worst the symptoms were moderate last night, in the emergency department the symptoms are unchanged. The patient has experienced similar episodes in the past, several times. The patient has been recently seen at the [facility] Emergency Department, this week. Historical: - Allergies: 03:51 No Known Allergies; jb4 - Home Meds: 03:51 Seroquel Oral [Active]; jb4 - PMHx: 03:51 Bipolar disorder; jb4 - PSHx: 03:51 rotator cuff; finger surgery; jb4 - Immunization history:: Adult Immunizations up to date. - Social history:: Smoking status: Patient denies any tobacco usage or history of. Patient uses street drugs, marijuana, Methamphetamine (Meth) Patient/guardian denies using alcohol. ROS: 04:29 Constitutional: Negative for fever, chills, and weight loss, Eyes: Negative for injury, mh7 pain, redness, and discharge, ENT: Negative for injury, pain, and discharge, Neck: Negative for injury, pain, and swelling, Cardiovascular: Negative for chest pain, palpitations, and edema, Back: Negative for injury and pain, : Negative for injury, bleeding, discharge, and swelling, MS/Extremity: Negative for injury and deformity, Skin: Negative for injury, rash, and discoloration, Neuro: Negative for headache, weakness, numbness, tingling, and seizure, Psych: Negative for depression, anxiety, suicide ideation, homicidal ideation, and hallucinations, Allergy/Immunology: Negative for hives, rash, and allergies, Endocrine: Negative for neck swelling, polydipsia, polyuria, polyphagia, and marked weight changes, Hematologic/Lymphatic: Negative for swollen nodes, abnormal bleeding, and unusual bruising. Exam: 04:29 Head/Face: Normocephalic, atraumatic. Eyes: Pupils equal round and reactive to light, mh7 extra-ocular motions intact. Lids and lashes normal. Conjunctiva and sclera are non-icteric and not injected. Cornea within normal limits. Periorbital areas with no swelling, redness, or edema. Neck: Trachea midline, no thyromegaly or masses palpated, and no cervical lymphadenopathy. Supple, full range of motion without nuchal rigidity, or vertebral point tenderness. No Meningismus. Chest/axilla: Normal chest wall appearance and motion. Nontender with no deformity. No lesions are appreciated. Cardiovascular: Regular rate and rhythm with a normal S1 and S2. No gallops, murmurs, or rubs. Normal PMI, no JVD. No pulse deficits. Respiratory: Lungs have equal breath sounds bilaterally, clear to auscultation and percussion. No rales, rhonchi or wheezes noted. No increased work of breathing, no retractions or nasal flaring. Back: No spinal tenderness. No costovertebral tenderness. Full range of motion. Skin: Warm, dry with normal turgor. Normal color with no rashes, no lesions, and no evidence of cellulitis. MS/ Extremity: Pulses equal, no cyanosis. Neurovascular intact. Full, normal range of motion. Neuro: Awake and alert, GCS 15, oriented to person, place, time, and situation. Cranial nerves II-XII grossly intact. Motor strength 5/5 in all extremities. Sensory grossly intact. Cerebellar exam normal. Normal gait. 04:29 Constitutional: The patient appears in no acute distress, alert, awake, anxious. 04:29 Psych: Behavior/mood is anxious, angry, Affect is animated, Oriented to person, place, time, Patient has no thoughts/intents to harm self or others. Judgement / Insight is normal. Memory is normal. Delusions/hallucinations are not present. Vital Signs: 03:43 BP 123 / 67; Pulse 91; Resp 16; Temp 97.8(TE); Pulse Ox 97% on R/A; Weight 77.11 kg jb4 (R); Height 5 ft. 11 in. (180.34 cm) (R); Pain 8/10; 04:30 BP 116 / 82; Pulse 73; Resp 16; Pulse Ox 98% on R/A; jb4 05:30 BP 142 / 75; Pulse 83; Resp 16; Pulse Ox 97% on R/A; jb4 06:30 BP 114 / 79; Pulse 65; Resp 16; Pulse Ox 97% on R/A; jb4 07:34 BP 116 / 82; Pulse 71; Resp 18; Pulse Ox 98% on R/A; em 03:43 Body Mass Index 23.71 (77.11 kg, 180.34 cm) jb4 MDM: 03:56 Patient medically screened. [facility] 07:00 Differential diagnosis: Anemia Anxiety Reaction asthma, Bronchitis CHF exacerbation, 7 Chronic Obstructive Pulmonary Disease Myocardial Infarction pneumonia, Pneumothorax Psychogenic pulmonary edema, Substance Abuse. Data reviewed: vital signs, nurses notes, EMS record, old medical records, lab test result(s), cardiac enzymes, CBC, drug level(s), electrolytes, urinalysis, EKG, radiologic studies, plain films. Data interpreted: Pulse oximetry: on room air is 98 %. Interpretation: normal. Counseling: I had a detailed discussion with the patient and/or guardian regarding: the historical points, exam findings, and any diagnostic results supporting the discharge/admit diagnosis, lab results, radiology results, the need for outpatient follow up, to return to the emergency department if symptoms worsen or persist or if there are any questions or concerns that arise at home. 12/14 03:57 Order name: Basic Metabolic Panel; Complete Time: 05:23 7 12/14 03:57 Order name: CBC with Diff; Complete Time: 04:29 7 12/14 03:57 Order name: LFT's; Complete Time: 05:23 7 12/14 03:57 Order name: Magnesium; Complete Time: 05:23 7 12/14 03:57 Order name: NT PRO-BNP; Complete Time: 05:23 7 12/14 03:57 Order name: PT-INR; Complete Time: 05:23 [facility] 12/14 03:57 Order name: Troponin (emerg Dept Use Only); Complete Time: 05:23 [facility] 12/14 03:57 Order name: XRAY Chest (1 view) [facility] 12/14 03:58 Order name: ETOH Level; Complete Time: 05:23 [facility] 12/14 03:58 Order name: CPK; Complete Time: 05:23 [facility] 12/14 04:36 Order name: Lipase; Complete Time: 05:23 [facility] 12/14 03:57 Order name: EKG; Complete Time: 03:58 [facility] 12/14 03:57 Order name: Cardiac monitoring; Complete Time: 04:05 [facility] 12/14 03:57 Order name: EKG - Nurse/Tech; Complete Time: 04:05 [facility] 12/14 03:57 Order name: IV Saline Lock; Complete Time: 04:05 [facility] 12/14 03:57 Order name: Labs collected and sent; Complete Time: 04:05 [facility] 12/14 03:57 Order name: O2 Per Protocol; Complete Time: 04:05 [facility] 12/14 03:57 Order name: O2 Sat Monitoring; Complete Time: 04:06 [facility] Administered Medications: 04:17 Drug: Ativan 1 mg Route: IVP; Site: right antecubital; jb4 07:15 Follow up: Response: No adverse reaction em Disposition: 12/15/19 07:03 Discharged to Home. Impression: Dyspnea, Methamphetamine Abuse. - Condition is Stable. - Discharge Instructions: Shortness of Breath, [id number], Stimulant Use Disorder-Methamphetamines. - Medication Reconciliation Form, Thank You Letter, Antibiotic Education, Prescription Opioid Use form. - Follow up: Private Physician; When: 1 - 2 days; Reason: Worsening of condition, Recheck today's complaints, Continuance of care, Re-evaluation by your physician. - Problem is an acute exacerbation. - Symptoms have improved. Signatures: Dispatcher [employer] Rodolfo Eller RN RN Jerman Marcum RN RN jb4 Alessandro Michelle MD MD mh7 Corrections: (The following items were deleted from the chart) 04:36 04:29 LIPASE+C.LAB.BRZ ordered. [facility] 07:58 07:03 12/15/2019 07:03 Discharged to Home. Impression: Dyspnea; Methamphetamine Abuse. em Condition is Stable. Forms are Medication Reconciliation Form, Thank You Letter, Antibiotic Education, Prescription Opioid Use. Follow up: Private Physician; When: 1 - 2 days; Reason: Worsening of condition, Recheck today's complaints, Continuance of care, Re-evaluation by your physician. Problem is an acute exacerbation. Symptoms have improved. mh7
[2019-12-15 08:20] VITALS: TEMP 97.8
[2019-12-15 08:26] VITALS: BP 116/82; O2SAT 98
--- NOTE | 2019-12-15 14:17 | RAD REPORT ---
EXAM DESCRIPTION: RAD - Chest Single View - 12/15/2019 4:14 am CLINICAL HISTORY: SOB COMPARISON: Chest 1 View AP 12/13/2019 TECHNIQUE: Chest 1 View AP FINDINGS: Trachea midline. Heart size and pulmonary vessels within normal limits. Lungs clear with no evidence of mass, consolidation, or significant pulmonary edema. No significant pleural effusion or pneumothorax. Thoracic spine degenerative disease. Right humeral head bone anchor screw. IMPRESSION: Unremarkable chest radiograph. Electronically signed by: Danny Aquino MD 12/15/2019 7:20 AM CDT Due to temporary technical issues with the PACS/Fluency reporting system, reports are being signed by the in house radiologist without review as a courtesy to ensure prompt reporting. The interpreting r adiologist is fully responsible for the content of the report.
--- NOTE | 2019-12-16 05:58 | EKG ---
Test Date: 2019-12-15 Test Time: 04:15:35 Workforce Consultant: GUERO MEASUREMENT RESULTS: Intervals: Rate: 59 ID: [id number] QRSD: 84 QT: 446 QTc: 441 Grandy: P: 77 ID: [id number] QRS: 84 T: 80 INTERPRETIVE STATEMENTS: Sinus bradycardia with premature supraventricular complexes Otherwise normal ECG Compared to ECG 12/13/2019 12:38:16 Atrial premature complex(es) now present Sinus rhythm no longer present Electronically Signed On 12-16-19 05:55:58 CDT by Rip Crespo
== END 2019-12-15 07:58 | disposition home or self-care (01) ==
LOC: ER 03:41
DX: F15.10 Other stimulant abuse, uncomplicated (principal); F31.9 Bipolar disorder, unspecified
CPT/HCPCS: 36415; 71045; 80048; 80076; 80320; 82550; 83690; 83735; 83880; 84484; 85025; 85610; 93005; 96374; 99284

== ENCOUNTER 2019-12-28 12:44 | Emergency (ER) | payer SELFPAY ==
[2019-12-28] MEDS ORDERED: NA CHLORIDE 0.9% 1,000 ML ONE (15:16)
[2019-12-28 15:30] LABS: Absolute Lymphocytes (CBC) 0.9 K/uL (0.7-4.9); Basophils % 0.5 % (0-1.3); Hematocrit 45.9 % (39.6-49.0); MPV 9.3 fL (7.6-11.3); RBC Red Blood Cell Count 5.11 M/uL (4.33-5.43)
[2019-12-28 15:33] LABS: Protime INR 0.92
[2019-12-28 15:44] LABS: ALT/SGPT 30 U/L (12-78); AST/SGOT 22 U/L (15-37); Albumin 3.9 g/dL (3.4-5.0); Alkaline Phosphatase 75 U/L (45-117); BUN Blood Urea Nitrogen 13 mg/dL (7-18); Bicarbonate 30 mmol/L (21-32); Bilirubin Direct 0.1 mg/dL (0-0.2); Bilirubin Total 0.4 mg/dL (0.2-1.0); Glucose Level 93 mg/dL (74-106); Magnesium 2.4 mg/dL (1.8-2.4); NT PRO-BNP 14 pg/mL (<125); Potassium 4.1 mmol/L (3.5-5.1); Protein, Total 7.6 g/dL (6.4-8.2); Sodium Level 142 mmol/L (136-145); Troponin (Emerg Dept Use Only) < 0.02 ng/mL (0.0-0.045)
--- NOTE | 2019-12-28 15:46 | RAD REPORT ---
EXAM DESCRIPTION: RAD - Chest Single View - 12/28/2019 3:14 pm CLINICAL HISTORY: CHEST PAIN COMPARISON: Portable December 14 TECHNIQUE: AP portable chest image was obtained 12/28/2019 3:14 pm . FINDINGS: Lungs are clear. Heart and vasculature are normal. No measurable pleural effusion and no p neumothorax. No acute bony abnormality seen. No acute aortic findings suspected. IMPRESSION: No acute cardiopulmonary process. No significant interval change.
[2019-12-28 16:38] LABS: Urine Blood NEGATIVE (NEG); Urine Glucose NEGATIVE (NEG); Urine Protein TRACE (NEG); Urine Specific Gravity 1.025 (1.005-1.030)
[2019-12-28 17:07] LABS: Barbiturates NEGATIVE (NEGATIVE); Benzodiazepines NEGATIVE (NEGATIVE); Cocaine NEGATIVE (NEGATIVE); METHAMPHETAM POSITIVE (NEGATIVE); Methadone NEGATIVE (NEGATIVE); Opiates NEGATIVE (NEGATIVE); Phencyclidine NEGATIVE (NEGATIVE); THC Cannibis POSITIVE (NEGATIVE)
--- NOTE | 2019-12-28 17:21 | EDPHYS ---
Physician Documentation [facility] Name: Issac Cox Age: 59 yrs Sex: Male : 1960 Arrival Date: 12/28/2019 Time: 14:23 Bed 2 Private MD: ED Physician Lopez Jurado HPI: 12/27 14:59 This 59 yrs old Male presents to ER via EMS with complaints of Anxiety. pm1 14:59 The patient or guardian reports chest pain that is located primarily in the mid-sternal pm1 area. Onset: yesterday. The pain does not radiate. Associated signs and symptoms: Pertinent positives: hyperventilation, drug abuse, Pertinent negatives: abdominal pain, cough, headache, nausea, vomiting. Duration: The patient or guardian reports multiple episodes, that have now resolved. Modifying factors: The symptoms are alleviated by calming down. the symptoms are aggravated by anxiety. Severity of pain: in the emergency department the pain has resolved. The patient has not recently seen a physician, Is going to rehabilitation for drug use tomorrow. Historical: - Allergies: 14:29 No Known Allergies; ph - Home Meds: 14:29 Seroquel Oral [Active]; ph - PMHx: 14:29 Bipolar disorder; Anxiety; ph - PSHx: 14:29 finger surgery; rotator cuff; ph - Immunization history:: Adult Immunizations unknown. - Social history:: Smoking status: Reported history of juuling and/or vaping. Patient uses street drugs, Methamphetamine (Meth). ROS: 14:59 Constitutional: Negative for fever, chills, and weight loss, Neck: Negative for injury, pm1 pain, and swelling. 14:59 Respiratory: Negative for shortness of breath, cough, wheezing, and pleuritic chest pain, Abdomen/GI: Negative for abdominal pain, nausea, vomiting, diarrhea, and constipation, Back: Negative for injury and pain, MS/Extremity: Negative for injury and deformity, Skin: Negative for injury, rash, and discoloration, Neuro: Negative for headache, weakness, numbness, tingling, and seizure. 14:59 Cardiovascular: Positive for chest pain, Negative for edema, palpitations. 14:59 Psych: Positive for anxiety, drug abuse, daily marijuana and speed 3 times per week, Negative for alcohol dependence, auditory hallucinations, visual hallucinations. Exam: 14:59 Constitutional: This is a well developed, well nourished patient who is awake, alert, pm1 and in no acute distress. Head/Face: Normocephalic, atraumatic. Neck: Trachea midline, no thyromegaly or masses palpated, and no cervical lymphadenopathy. Supple, full range of motion without nuchal rigidity, or vertebral point tenderness. No Meningismus. 14:59 Chest/axilla: Normal chest wall appearance and motion. Nontender with no deformity. No lesions are appreciated. 14:59 Back: No spinal tenderness. No costovertebral tenderness. Full range of motion. Skin: Warm, dry with normal turgor. Normal color with no rashes, no lesions, and no evidence of cellulitis. MS/ Extremity: Pulses equal, no cyanosis. Neurovascular intact. Full, normal range of motion. 14:59 Cardiovascular: Exam negative for acute changes, Rate: normal, Rhythm: regular, Pulses: no pulse deficits are appreciated. 14:59 Respiratory: Exam negative for acute changes, respiratory distress, shortness of breath. 14:59 Abdomen/GI: Exam negative for acute changes, Inspection: abdomen appears normal, Palpation: abdomen is soft and non-tender, in all quadrants. 14:59 Neuro: Exam negative for acute changes, Orientation: is normal, Mentation: is normal, Motor: is normal, moves all fours. 18:41 ECG was reviewed by the Attending Physician. kdr Vital Signs: 14:23 BP 135 / 94; Pulse 75; Resp 20; Temp 98.4; Pulse Ox 97% on R/A; Weight 77.11 kg; Height ph 5 ft. 11 in. (180.34 cm); 14:30 BP 125 / 82; Pulse 75; Resp 14; Pulse Ox 98% on R/A; vg1 15:15 BP 123 / 81; Pulse 80; Resp 14; Pulse Ox 98% on R/A; vg1 15:45 BP 102 / 89; Pulse 79; Resp 12; Pulse Ox 100% on R/A; vg1 16:15 BP 118 / 73; Pulse 79; Resp 12; Pulse Ox 100% on R/A; Pain 4/10; vg1 16:45 BP 122 / 84; Pulse 78; Resp 14; Pulse Ox 100% on R/A; vg1 17:20 BP 119 / 81; Pulse 83; Resp 12; Pulse Ox 100% on R/A; vg1 14:23 Body Mass Index 23.71 (77.11 kg, 180.34 cm) ph MDM: 14:42 Patient medically screened. pm1 16:08 Data reviewed: vital signs. Data interpreted: Pulse oximetry: on room air is 100 %. pm1 Interpretation: normal. 17:19 Counseling: I had a detailed discussion with the patient and/or guardian regarding: the pm1 historical points, exam findings, and any diagnostic results supporting the discharge/admit diagnosis, lab results, radiology results, the need for outpatient follow up, to return to the emergency department if symptoms worsen or persist or if there are any questions or concerns that arise at home. 12/27 14:43 Order name: Basic Metabolic Panel pm1 12/27 14:43 Order name: CBC with Diff pm1 12/27 14:43 Order name: LFT's pm1 12/27 14:43 Order name: Magnesium pm1 12/27 14:43 Order name: NT PRO-BNP pm1 12/27 14:43 Order name: PT-INR pm1 12/27 14:43 Order name: Troponin (emerg Dept Use Only) pm1 12/27 14:43 Order name: Acetaminophen pm1 12/27 14:43 Order name: ETOH Level pm1 12/27 14:43 Order name: Ptt, Activated pm1 12/27 14:43 Order name: Salicylate pm1 12/27 14:43 Order name: Urine Drug Screen pm1 12/27 15:32 Order name: CBC with Automated Diff; Complete Time: 16:00 EDMS 12/27 15:36 Order name: Protime (+INR); Complete Time: 16:00 EDMS 12/27 14:43 Order name: XRAY Chest (1 view) pm1 12/27 14:43 Order name: EKG; Complete Time: 14:44 pm1 12/27 15:36 Order name: PTT, Activated Partial Thromb; Complete Time: 16:00 EDMS 12/27 15:44 Order name: Basic Metabolic Panel; Complete Time: 16:00 EDMS 12/27 15:44 Order name: Liver (Hepatic) Function; Complete Time: 16:00 EDMS 12/27 15:44 Order name: Troponin (Emerg Dept Use Only); Complete Time: 16:00 EDMS 12/27 15:44 Order name: NT PRO-BNP; Complete Time: 16:00 EDMS 12/27 15:44 Order name: Acetaminophen Level; Complete Time: 16:00 EDMS 12/27 15:44 Order name: Magnesium; Complete Time: 16:00 EDMS 12/27 15:45 Order name: Salicylates Level; Complete Time: 16:00 EDMS 12/27 15:45 Order name: Alcohol Serum/Plasma; Complete Time: 16:00 EDMS 12/27 15:49 Order name: RAD; Complete Time: 16:00 EDMS 12/27 16:30 Order name: Urine Dipstick--Ancillary (enter results) bd 12/27 16:39 Order name: Urine Dipstick-Ancillary; Complete Time: 16:46 EDMS 12/27 17:07 Order name: Urine Drug Screen; Complete Time: 17:20 EDMS 12/27 14:43 Order name: Cardiac monitoring; Complete Time: 15:18 pm1 12/27 14:43 Order name: EKG - Nurse/Tech; Complete Time: 15:18 pm1 12/27 14:43 Order name: IV Saline Lock; Complete Time: 15:18 pm1 12/27 14:43 Order name: Labs collected and sent; Complete Time: 15:18 pm1 12/27 14:43 Order name: O2 Per Protocol; Complete Time: 15:18 pm1 12/27 14:43 Order name: O2 Sat Monitoring; Complete Time: 15:18 pm1 12/27 14:43 Order name: Urine Dipstick-Ancillary (obtain specimen); Complete Time: 16:37 pm1 EC:41 Rate is 79 beats/min. Rhythm is regular, Sinus Rhythm with No ectopy. QRS Shields is kdr Normal. CA interval is normal. QRS interval is normal. Clinical impression: NSR w/ Non-specific ST/T Changes. Administered Medications: 15:18 Drug: NS 0.9% 1000 ml Route: IV; Rate: 1000 ml; Site: right antecubital; vg1 16:21 Follow up: Response: No adverse reaction; IV Intake: 1000ml vg1 Disposition: 18:43 Co-signature as Attending Physician, Lopez Jurado MD I agree with the assessment and kdr plan of care. Disposition: 12/28/19 17:20 Discharged to Home. Impression: Chest pain, unspecified, Cannabis abuse, Other stimulant abuse - methamphetamine. - Condition is Stable. - Discharge Instructions: Nonspecific Chest Pain, Cannabis Use Disorder, Stimulant Use Disorder-Methamphetamines. - Medication Reconciliation Form, Thank You Letter, Antibiotic Education, Prescription Opioid Use form. - Follow up: Emergency Department; When: As needed; Reason: Worsening of condition. Follow up: Private Physician; When: 2 - 3 days; Reason: Recheck today's complaints, Continuance of care, Re-evaluation by your physician. - Problem is new. - Symptoms have improved. Signatures: Dispatcher [employer] EDMS Lopez Jurado MD MD kdr Estrella Olson RN RN ph Joseph Solano NP LPN RN pm1 Shelia Jaffe RN RN vg1 Corrections: (The following items were deleted from the chart) 17:21 17:20 12/28/2019 17:20 Discharged to Home. Impression: Chest pain, unspecified; pm1 Cannabis abuse. Condition is Stable. Forms are Medication Reconciliation Form, Thank You Letter, Antibiotic Education, Prescription Opioid Use. Follow up: Emergency Department; When: As needed; Reason: Worsening of condition. Follow up: Private Physician; When: 2 - 3 days; Reason: Recheck today's complaints, Continuance of care, Re-evaluation by your physician. Problem is new. Symptoms have improved. pm1 17:32 17:21 12/28/2019 17:20 Discharged to Home. Impression: Chest pain, unspecified; vg1 Cannabis abuse; Other stimulant abuse - methamphetamine. Condition is Stable. Discharge Instructions: Nonspecific Chest Pain, Cannabis Use Disorder, Stimulant Use Disorder-Methamphetamines. Forms are Medication Reconciliation Form, Thank You Letter, Antibiotic Education, Prescription Opioid Use. Follow up: Emergency Department; When: As needed; Reason: Worsening of condition. Follow up: Private Physician; When: 2 - 3 days; Reason: Recheck today's complaints, Continuance of care, Re-evaluation by your physician. Problem is new. Symptoms have improved. pm1
--- NOTE | 2019-12-28 17:21 | ER ---
Nurse's Notes [facility] Name: Issac Cox Age: 59 yrs Sex: Male : 1960 Arrival Date: 12/28/2019 Time: 14:23 Bed 2 Private MD: Diagnosis: Chest pain, unspecified;Cannabis abuse;Other stimulant abuse-methamphetamine Presentation: 12/27 14:23 Chief complaint: EMS states: Pt c/o anxiety, reports 2 anxiety attacks yesterday and 1 ph today, upon EMS arrival pt was tachypneic, c/o SOB and chest tightness, gave breathing instructions and respirations decreased, HR in 70s, pt admits to using speed approx 2-3 days ago, states, " I'm supposed to be going to rehab tomorrow." Denies ETOH use. Coronavirus screen: Client denies travel out of the [place] in the last 14 days. At this time, the client does not indicate any symptoms associated with coronavirus-19. Ebola Screen: No symptoms or risks identified at this time. Initial Sepsis Screen: Does the patient meet any 2 criteria? No. Patient's initial sepsis screen is negative. Does the patient have a suspected source of infection? No. Patient's initial sepsis screen is negative. Risk Assessment: Do you want to hurt yourself or someone else? Patient reports no desire to harm self or others. Onset of symptoms was December 28, 2019. 14:23 Method Of Arrival: EMS: [facility] ph 14:23 Acuity: ANG 3 ph Historical: - Allergies: 14:29 No Known Allergies; ph - Home Meds: 14:29 Seroquel Oral [Active]; ph - PMHx: 14:29 Bipolar disorder; Anxiety; ph - PSHx: 14:29 finger surgery; rotator cuff; ph - Immunization history:: Adult Immunizations unknown. - Social history:: Smoking status: Reported history of juuling and/or vaping. Patient uses street drugs, Methamphetamine (Meth). Screenin:29 Abuse screen: Denies threats or abuse. Denies injuries from another. Nutritional ph screening: No deficits noted. Tuberculosis screening: No symptoms or risk factors identified. Fall Risk None identified. Assessment: 15:00 General: Appears in no apparent distress. Behavior is cooperative, anxious. Pain: vg1 Complains of pain in chest; states he feels tightness that comes and goes. Pain currently is 6 out of 10 on a pain scale. Neuro: Level of Consciousness is awake, alert, obeys commands, Oriented to person, place, time. Cardiovascular: Patient's skin is warm and dry. Respiratory: Airway is patent Respiratory effort is even, unlabored, Respiratory pattern is regular, symmetrical. GI: No signs and/or symptoms were reported involving the gastrointestinal system. : No signs and/or symptoms were reported regarding the genitourinary system. EENT: No signs and/or symptoms were reported regarding the EENT system. Derm: Skin is pink, warm \\T\\ dry. Musculoskeletal: Range of motion: intact in all extremities. 15:51 Reassessment: Patient and/or family updated on plan of care and expected duration. Pain vg1 level reassessed. Patient is alert, oriented x 3, equal unlabored respirations, skin warm/dry/pink. Patient in bed, resting with eyes closed. 16:20 Reassessment: Patient and/or family updated on plan of care and expected duration. Pain vg1 level reassessed. Patient is alert, oriented x 3, equal unlabored respirations, skin warm/dry/pink. Patient states pain level 4/10. States pain in chest is more when taking a deep breath. 16:32 Reassessment: Patient states he forgot to state that right before he came he threw up vg1 "chunks of pink stuff" and doesn't remember eating anything pink. Notified Joseph REYNAGA. 17:18 Reassessment: Patient appears in no apparent distress at this time. No changes from vg1 previously documented assessment. Patient and/or family updated on plan of care and expected duration. Pain level reassessed. Patient is alert, oriented x 3, equal unlabored respirations, skin warm/dry/pink. Patient resting in bed with family at bedside. Vital Signs: 14:23 BP 135 / 94; Pulse 75; Resp 20; Temp 98.4; Pulse Ox 97% on R/A; Weight 77.11 kg; Height ph 5 ft. 11 in. (180.34 cm); 14:30 BP 125 / 82; Pulse 75; Resp 14; Pulse Ox 98% on R/A; vg1 15:15 BP 123 / 81; Pulse 80; Resp 14; Pulse Ox 98% on R/A; vg1 15:45 BP 102 / 89; Pulse 79; Resp 12; Pulse Ox 100% on R/A; vg1 16:15 BP 118 / 73; Pulse 79; Resp 12; Pulse Ox 100% on R/A; Pain 4/10; vg1 16:45 BP 122 / 84; Pulse 78; Resp 14; Pulse Ox 100% on R/A; vg1 17:20 BP 119 / 81; Pulse 83; Resp 12; Pulse Ox 100% on R/A; vg1 14:23 Body Mass Index 23.71 (77.11 kg, 180.34 cm) ph ED Course: 14:23 Patient arrived in ED. ph 14:28 Triage completed. ph 14:29 Arm band placed on Patient placed in an exam room, on a stretcher, on pulse oximetry. ph 14:30 Patient has correct armband on for positive identification. Bed in low position. Call ph light in reach. Side rails up X 1. Pulse ox on. NIBP on. Door closed. Noise minimized. Warm blanket given. 14:32 Joseph Solano NP is PHCP. pm1 14:32 Lopez Jurado MD is Attending Physician. pm1 14:48 Rodolfo Lee, CHHAYA is Primary Nurse. em 15:17 Initial lab(s) drawn, by me, sent to lab. mt 15:59 Urine Drug Screen Sent. sv 15:59 Salicylate Sent. sv 15:59 Ptt, Activated Sent. sv 15:59 ETOH Level Sent. sv 15:59 Acetaminophen Sent. sv 15:59 Troponin (emerg Dept Use Only) Sent. sv 15:59 PT-INR Sent. sv 15:59 NT PRO-BNP Sent. sv 15:59 Magnesium Sent. sv 15:59 LFT's Sent. sv 15:59 CBC with Diff Sent. sv 15:59 Basic Metabolic Panel Sent. sv 15:59 XRAY Chest (1 view) Sent. sv 17:21 Joseph REYNAGA at patient bedside to go over results. vg1 17:27 No provider procedures requiring assistance completed. IV discontinued, intact, vg1 bleeding controlled, No redness/swelling at site. Pressure dressing applied. Administered Medications: 15:18 Drug: NS 0.9% 1000 ml Route: IV; Rate: 1000 ml; Site: right antecubital; vg1 16:21 Follow up: Response: No adverse reaction; IV Intake: 1000ml vg1 Intake: 16:21 IV: 1000ml; Total: 1000ml. vg1 Outcome: 17:20 Discharge ordered by . pm1 17:27 Discharged to home ambulatory, with family. vg1 17:27 Condition: good 17:27 Discharge instructions given to patient, Instructed on discharge instructions, follow up and referral plans. Demonstrated understanding of instructions, follow-up care. 17:32 Patient left the ED. vg1 Signatures: Gabby Gipson, RN Rodolfo Peterson, RN RN Estrella Olson, Joseph Gonzalez RN, ph, RUBBER STAMP ASSEMBLER RUBBER STAMP ASSEMBLER pm1 Jacqueline Nicole mt, Victoria, RN RN vg1
[2019-12-28 20:06] VITALS: TEMP 98.4
[2019-12-28 20:12] VITALS: O2SAT 100
[2019-12-28 20:16] VITALS: BP 119/81
--- NOTE | 2019-12-29 16:10 | EKG ---
Test Date: 2019-12-28 Test Time: 15:17:22 Contract Preparer: RACHANA MEASUREMENT RESULTS: Intervals: Rate: 79 RI: 152 QRSD: 88 QT: 386 QTc: 442 [place]: P: 81 RI: 152 QRS: 83 T: 69 INTERPRETIVE STATEMENTS: Sinus rhythm with fusion complexes Cannot rule out Anterior infarct, age undetermined Abnormal ECG Compared to ECG 12/15/2019 04:15:35 Fusion complex(es) now present Myocardial infarct finding now present Sinus bradycardia no longer present Atrial premature complex(es) no longer present Electronically Signed On 12-29-19 16:08:12 CDT by Rip Crespo
== END 2019-12-28 17:32 | disposition home or self-care (01) ==
LOC: ER 14:22
DX: R07.9 Chest pain, unspecified (principal); F12.10 Cannabis abuse, uncomplicated; F15.10 Other stimulant abuse, uncomplicated; F17.290 Nicotine dependence, other tobacco product, uncomplicated
CPT/HCPCS: 36415; 71045; 80048; 80076; 80307; 80320; 80329; 81003; 83735; 83880; 84484; 85025; 85610; 85730; 93005; 99284; J7030